=== PATIENT | female | born 1975 | race Two or more races ===

== ENCOUNTER → 2021-01-16 10:08 | Outpatient (REF) | payer OTHER, SELFPAY ==
--- NOTE | 2021-01-16 11:48 | CA_ITS ---
Acquisition Time: 2021-01-16 11:22:41 Total Exercise Time: 00:07:46 Test Indications: CP Medications: SEE CHART Protocol: LAURA Max HR: 136 BPM 77% of Pred: 176 BPM Max BP: 116/080 mmHG Max Work Load: 9.7 METS Exercise stress test using Laura protocol. Pt exercised for 7 min 46 sec, with METS 9.70 and TAPHR up to 76 %. No arrhytmias seen on EKG tracing, no ST changes suggestive of ischemia, however her HR up to 77 % and test had to terminated d/t fatique. Normotensive response to exercise. Test revieweed with Dr. Lanza. spoke with Dr. Andrew recommendation made for pharmacological stress test Referred By: Dayana Morris Overread By: Demetra Milner
== END ==
LOC: HO.CARD 10:08
PROVIDERS: PCP Internal Medicine; Visit Provider Internal Medicine
DX: R07.9 Chest pain, unspecified (principal)
CPT/HCPCS: 93017

== ENCOUNTER → 2021-02-22 10:07 | Outpatient (BNVA) | payer OTHER, SELFPAY | PROVIDERS: PCP Internal Medicine; Visit Provider Internal Medicine Cardiovascular Disease | DX: J44.9 Chronic obstructive pulmonary disease, unspecified (principal); R06.00 Dyspnea, unspecified; R07.9 Chest pain, unspecified | CPT/HCPCS: 93005; 99202 ==

== ENCOUNTER 2021-03-12 13:28 | Outpatient (REF) | payer OTHER, SELFPAY | END 2021-03-12 13:29 | disposition home or self-care (01) | LOC: HO.LAB 13:28 | PROVIDERS: Visit Provider Internal Medicine | DX: Z20.822 Contact with and (suspected) exposure to COVID-19 (principal) | CPT/HCPCS: C9803; U0003; U0005 ==

== ENCOUNTER 2021-03-29 09:54 | Outpatient (REF) | payer OTHER, SELFPAY ==
--- NOTE | 2021-03-29 10:30 | ECG_ITS ---
Test Reason : CP Blood Pressure : / mmHG Vent. Rate : 071 BPM Atrial Rate : 071 BPM P-R Int : 142 ms QRS Dur : 078 ms QT Int : 396 ms P-R-T Axes : 076 034 038 degrees QTc Int : 430 ms Normal sinus rhythm Possible Left atrial enlargement Borderline ECG No previous ECGs available Referred By: Dayana Morris Electronically Signed By:HERNANDEZ SANTOS MD
[2021-03-29 12:39] LABS: Alanine Aminotransferase 11 U/L (0-31); Albumin Level 3.9 g/dL (3.5-5.0); Alkaline Phosphatase 84 U/L (39-117); Anion Gap 12 (12-20); Aspartate Amino Transferase 12 U/L (5-31); Bilirubin Total 0.2 mg/dL (0.0-1.0); Blood Urea Nitrogen 12 mg/dL (9-16); Calcium 8.9 mg/dL (8.4-10.2); Carbon Dioxide 26 mmol/L (22-29); Chloride 106 mmol/L (96-108); Cholesterol 164 mg/dL; Estimated Glomerular Filt Rate > 60; Glucose Fasting 108 mg/dL (60-99); HDL Cholesterol 53 mg/dL; LDL Cholesterol Calculated 86 mg/dl; Potassium 4.6 mmol/L (3.3-5.1); Sodium 139 mmol/L (135-145); Total Protein 6.8 g/dL (6.5-8.0); Triglycerides 127 mg/dL
== END 2021-03-29 09:55 | disposition home or self-care (01) ==
LOC: HO.LAB 09:54
PROVIDERS: Absent Provider Internal Medicine; PCP Internal Medicine; Visit Provider Internal Medicine Pulmonary Disease
DX: J44.9 Chronic obstructive pulmonary disease, unspecified (principal); R07.9 Chest pain, unspecified; E78.5 Hyperlipidemia, unspecified; E66.3 Overweight; Z86.16 Personal history of COVID-19; Z20.822 Contact with and (suspected) exposure to COVID-19
CPT/HCPCS: 80053; 80061; 93005; 99202; U0003; U0005

== ENCOUNTER 2021-05-15 14:10 | Outpatient (REF) | payer OTHER, SELFPAY ==
--- NOTE | 2021-05-15 17:29 | PFT_ITS ---
INDICATION: Dyspnea. SPIROMETRY: The FEV1 to FVC is 77% with an FEV1 of 2.06 L, which is 85% predicted with an FVC of 2.66 L, which is 89% predicted. No significant response to bronchodilators noted. Maximum voluntary ventilation 74% predicted. LUNG VOLUMES: Total lung capacity 100% predicted with expiratory reserve volume of 136% predicted and residual volume of 115% predicted. DIFFUSION CAPACITY: DLCO 74% predicted. COMPARISONS: None. INTERPRETATION: No obstructive nor restrictive ventilatory defects identified. No significant response to bronchodilators noted. There is a mild decrease in maximum voluntary ventilation. Lung volumes within normal limits. There is an isolated mild diffusion impairment of unclear etiology. Clinical correlation warranted. Elliot Amanda MD MR/MODL / [id number]
== END 2021-05-15 14:11 | disposition home or self-care (01) ==
LOC: HO.RESP 14:10
PROVIDERS: PCP Internal Medicine; Visit Provider Internal Medicine Pulmonary Disease
DX: R06.00 Dyspnea, unspecified (principal)
CPT/HCPCS: 94060; 94727; 94729

== ENCOUNTER 2021-05-31 13:45 | Outpatient (REF) | payer OTHER, SELFPAY ==
[2021-05-31 14:12] LABS: MANUAL DIFF FLAG NO
[2021-05-31 14:28] LABS: Basophils Absolute Auto 0.1 X10*3/uL (0.0-0.2); Basophils Percent Auto 0.3 % (0-2); Eosinophils Absolute Auto 0.2 X10*3/uL (0.0-0.4); Eosinophils Percent Auto 0.9 % (0-4); Hematocrit 37.6 % (37-47); Hemoglobin 12.4 g/dl (12.0-16.0); Imm Gran Abs Auto 0.07 X10*3/uL (0.00-0.03); Imm Gran Pct Auto 0.4 % (0.0-0.4); Lymphocytes Absolute Auto 2.7 X10*3/uL (1.2-4.9); Lymphocytes Percent Auto 15.3 % (20-40); Mean Corpuscular Hemoglobin 29.2 pg (27.0-33.0); Mean Corpuscular Volume 88.5 fL (80-98); Mean Platelet Volume 9.2 fL (9.4-12.3); Monocytes Percent Auto 5.9 % (2-11); Neutrophils Absolute Auto 13.4 X10*3/uL (2.0-8.3); Neutrophils Percent Auto 77.2 % (45-73); Platelet Count 413 X10*3/uL (160-400); Red Blood Count 4.25 X10*6/uL (4.20-5.50); Red Cell Distribution Width 13.9 % (11.0-16.0); White Blood Count 17.3 X10*3/uL (4.8-10.8)
== END 2021-05-31 13:46 | disposition home or self-care (01) ==
LOC: HO.LAB 13:45
PROVIDERS: PCP Internal Medicine; Visit Provider Internal Medicine
DX: D64.9 Anemia, unspecified (principal)
CPT/HCPCS: 36415; 85025

== ENCOUNTER 2022-02-22 12:09 | Outpatient (REF) | payer OTHER, SELFPAY ==
[2022-02-22 12:48] LABS: COVID-19 Test Negative (Negative)
== END 2022-02-22 12:10 | disposition home or self-care (01) ==
LOC: HO.LAB 12:09
PROVIDERS: Visit Provider Internal Medicine
DX: Z20.822 Contact with and (suspected) exposure to COVID-19 (principal)
CPT/HCPCS: 87635; C9803

== ENCOUNTER 2022-08-16 14:38 | Outpatient (REF) | payer OTHER, SELFPAY ==
[2022-08-16 16:35] LABS: MANUAL DIFF FLAG NO
[2022-08-16 16:40] LABS: Basophils Absolute Auto 0.1 X10*3/uL (0.0-0.2); Basophils Percent Auto 0.7 % (0-2); Eosinophils Absolute Auto 0.1 X10*3/uL (0.0-0.4); Eosinophils Percent Auto 0.7 % (0-4); Hematocrit 40.4 % (37.0-47.0); Hemoglobin 13.2 g/dl (12.0-16.0); Imm Gran Abs Auto 0.03 X10*3/uL (0.00-0.03); Imm Gran Pct Auto 0.3 % (0.0-0.4); Lymphocytes Absolute Auto 2.5 X10*3/uL (1.2-4.9); Lymphocytes Percent Auto 22.9 % (20-40); Mean Corpuscular HGB Conc 32.7 g/dl (31.0-35.0); Mean Corpuscular Hemoglobin 28.8 pg (27.0-33.0); Mean Corpuscular Volume 88.2 fL (80.0-98.0); Mean Platelet Volume 9.6 fL (9.4-12.3); Monocytes Absolute Auto 0.9 X10*3/uL (0.1-1.2); Neutrophils Absolute Auto 7.4 x10*3/uL (2.0-8.3); Neutrophils Percent Auto 67.4 % (45-73); Platelet Count 438 X10*3/uL (160-400); Red Blood Count 4.58 X10*6/uL (4.20-5.50); Red Cell Distribution Width 13.7 % (11.0-16.0); White Blood Count 10.9 X10*3/uL (4.8-10.8)
[2022-08-16 17:29] LABS: Anion Gap 16 (12-20); Carbon Dioxide 27 mmol/L (22-29); Chloride 103 mmol/L (96-108); Potassium 4.8 mmol/L (3.3-5.1); Sodium 141 mmol/L (135-145)
[2022-08-16 17:39] LABS: Troponin-I High Sensitivity < 3.5 ng/L (<3.5-17.0)
== END 2022-08-16 14:39 | disposition home or self-care (01) ==
LOC: HO.HMGCLDS 14:38
PROVIDERS: PCP Internal Medicine
DX: R07.9 Chest pain, unspecified (principal)
CPT/HCPCS: 36415; 80051; 84484; 85025

== ENCOUNTER 2022-11-08 13:43 | Outpatient (REF) | payer OTHER, SELFPAY ==
--- NOTE | ~2022-11-08 | XR_ITS ---
EXAMINATION: XR CHEST CLINICAL INFORMATION: Chronic obstructive pulmonary disease COMPARISON: None TECHNIQUE: 2 views of the chest were obtained. FINDINGS: No significant abnormality is noted involving the heart, lungs, mediastinum, bony thorax or soft tissues. XR/XR chest 2V IMPRESSION: Unremarkable chest examination.
== END 2022-11-08 13:44 | disposition home or self-care (01) ==
LOC: HO.XRAY 13:43
PROVIDERS: PCP Internal Medicine; Visit Provider Internal Medicine Pulmonary Disease
DX: J44.9 Chronic obstructive pulmonary disease, unspecified (principal); Z91.09 Other allergy status, other than to drugs and biological substances
CPT/HCPCS: 71046; 99212

== ENCOUNTER 2023-05-15 10:32 | Outpatient (REF) | payer OTHER, SELFPAY ==
[2023-05-20 22:13] LABS: HPV mRNA E6/E7 rflx Not Detected (Not Detected)
== END 2023-05-15 10:33 | disposition home or self-care (01) ==
LOC: HO.LNP 10:32
PROVIDERS: PCP Internal Medicine; Visit Provider Advanced Practice Midwife
DX: Z01.419 Encounter for gynecological examination (general) (routine) without abnormal findings (principal); R23.2 Flushing; R63.5 Abnormal weight gain; N64.4 Mastodynia
CPT/HCPCS: 87624; 88142

== ENCOUNTER 2023-06-11 14:23 | Outpatient (AMB) | payer OTHER, SELFPAY ==
--- NOTE | 2023-06-11 14:26 | MHC.OFFVIS ---
Intake Vital Signs 06/11/23 14:28 Height 5 ft 2 in Weight 158 lb 11.725 oz BMI 29.0 BP 110/72 Pulse 70 Pulse Oximetry (%) 99 Intake Visit Reasons: COPD Intake Note: pt is on advair instead of breo, possible insurance did not cover medication. she also get pain in her chest at night and she uses her inhaler and it relives some pain. Allergies morphine [MORPHINE] Allergy (Severe, Verified 06/11/23 14:27) anaphylaxis ondansetron [From ZOFRAN ( HYDROCHLORIDE)] Allergy (Severe, Verified 06/11/23 14:27) Hives acetaminophen [From FIORICET] Allergy (Intermediate, Verified 06/11/23 14:27) abdominal pain butalbital [From FIORICET] Allergy (Intermediate, Verified 06/11/23 14:27) Abdominal Pain caffeine [From FIORICET] Allergy (Intermediate, Verified 06/11/23 14:27) Abdominal Pain ibuprofen [From MOTRIN] Allergy (Intermediate, Verified 06/11/23 14:27) Abdominal Pain ketorolac [From TORADOL] Allergy (Intermediate, Verified 06/11/23 14:27) Abdominal Pain naproxen [NAPROXEN] Allergy (Intermediate, Verified 06/11/23 14:27) Abdominal Pain nicotine [From NICODERM CQ] Allergy (Intermediate, Verified 06/11/23 14:27) MIGRAINE, rash, headache tramadol Allergy (Intermediate, Verified 06/11/23 14:27) abdominal pain, chest pain sumatriptan [From Imitrex] Adverse Reaction (Severe, Verified 06/11/23 14:27) chest pain HPI COPD HPI Details 48-year-old lady, recent 40+ pack-year smoker, now followed for asthma/COPD overlap syndrome and environmental allergies.? Patient has been using her Advair as needed with suboptimal control of his symptoms and also intermittently using her albuterol MDI. Though she denies an acute exacerbation. [facility] Medical History Blurry vision Chest pain Depression GERD (gastroesophageal reflux disease) Hot flashes Muscle spasm Nausea Overweight Surgical History History of appendectomy History of section History of cholecystectomy History of hemorrhoidectomy History of tubal ligation Family History Father Diabetes Mother Depression Hypertension Maternal Aunt Uterine cancer Social History Housing: Apartment Alcohol intake: former Patient Tobacco Use Status: Current everyday Tobacco user Tobacco use type: Cigarette Cigarettes Per Day: 10 e-Cigarette/Vaping Use: Never Used Second Hand Smoke Exposure: No service: No Current occupational status: unemployed Cognitive needs: No Hearing needs: No Vision needs: No Female Reproductive History Menstrual Age of Menarche: 15 Review of Systems Const Denies daytime sleepiness, Denies excessive sweating, Denies fatigue, Denies fever(s), Denies lethargy, Denies malaise, Denies night sweats, Denies snoring and Denies weight loss Eyes Denies blurry vision and Denies itchy eyes ENT Denies nasal congestion, Denies post nasal drip, Denies sinus pain, Denies sinus pressure and Denies other ( Thrush) Card Denies chest pain, Denies pedal edema, Denies dyspnea, Denies orthopnea and Denies paroxysmal nocturnal dyspnea Resp Denies cough, Denies hemoptysis, Denies excessive phlegm production, Denies dyspnea, Denies snoring and Denies wheezing GI Denies abdominal pain and Denies heartburn Musc Denies myalgias, Denies arthralgias and Denies joint swelling Skin/Breast Denies rash Neuro Denies memory loss and Denies seizure-like activity Psych Denies abnormal sleep pattern, Denies anxiety and Denies memory loss Endo Denies excessive sweating, Denies fatigue and Denies heat intolerance Hiram/Lymph Denies easy bruising Aller/Immun Denies itchy eyes, Denies seasonal rhinorrhea and Denies wheezing Physical Exam Vital Signs: Last Vital Signs Pulse 70 06/11/23 14:28 BP 110/72 06/11/23 14:28 Pulse Ox 99 06/11/23 14:28 BMI result Body Mass Index 29.0 Const General: no acute distress and alert Nutritional Appearance: not obese Orientation/consciousness: Other orientation findings ( oriented) HEENT Head: Yes atraumatic Eyes General: appearance normal, both eyes and all related structures Sclerae: sclerae normal EOM: EOMs intact bilaterally Neck Neck: Yes supple Lymphatic: no lymphadenopathy noted Resp Effort & Inspection: normal respiratory effort and no use of accessory muscles Auscultation: clear to auscultation bilaterally Cardio Rate: regular rate Rhythm: regular rhythm Heart sounds: no gallops, no murmurs and no rubs Skin General skin exam: other ( warm) Extrem General: No clubbing, No cyanosis and No edema Assessment & Plan Assessment & Plan (1) Asthma-COPD overlap syndrome: Code(s): J44.9 - Chronic obstructive pulmonary disease, unspecified Plan: Suboptimally controlled as patient has been using her Advair on as needed basis. Patient has been advised to use her Advair scheduled twice a day. Will continue albuterol MDI and duo nebs. (2) Environmental allergies: Code(s): Z91.09 - Other allergy status, other than to drugs and biological substances Plan: Will control at this time on OTC H2 blockers. (3) Declined smoking cessation: Code(s): Z72.0 - Tobacco use Plan: Patient is interested in smoking cessation and is requesting Chantix. Will prescribe. Medications: New varenicline (Chantix Starting Month Box) PO PER PKG DIR 53 ea 0RF Quality Reporting (2019) Adult ([facility] 138/01/22/69) Smoking risk assessment performed?: Yes Patient Tobacco Use Status: Current everyday Tobacco user Coding Level of Care Code Est Pt Level 4 (66882) Diagnoses Asthma-COPD overlap syndrome J44.9 Environmental allergies Z91.09 Declined smoking cessation Z72.0
[2023-06-11 14:28] VITALS: BP 110/72; PULSE 70; O2SAT 99; BMI 29.0
== END 2023-06-11 14:45 | disposition home or self-care (01) ==
PROVIDERS: PCP Internal Medicine; Visit Provider Internal Medicine Pulmonary Disease
DX: J44.9 Chronic obstructive pulmonary disease, unspecified (principal); Z91.09 Other allergy status, other than to drugs and biological substances; Z72.0 Tobacco use
CPT/HCPCS: 99214

== ENCOUNTER → 2023-06-11 14:23 | Outpatient (BNVA) | payer OTHER, SELFPAY | PROVIDERS: PCP Internal Medicine; Visit Provider Internal Medicine Pulmonary Disease | DX: J44.9 Chronic obstructive pulmonary disease, unspecified (principal); Z91.09 Other allergy status, other than to drugs and biological substances; Z72.0 Tobacco use | CPT/HCPCS: 99212 ==

== ENCOUNTER 2023-06-27 11:54 | Emergency (ER) | payer OTHER, SELFPAY ==
--- NOTE | ~2023-06-27 | XR_ITS ---
EXAMINATION: XR FOOT, RIGHT CLINICAL INFORMATION: Right foot injury with tenderness. COMPARISON: None available. TECHNIQUE: AP, lateral, and oblique views of the right foot. FINDINGS: The bones and soft tissues are normal. No fracture. Alignment is anatomic. Joint spaces are maintained. XR/XR foot RT 2V IMPRESSION: Unremarkable right foot.
--- NOTE | ~2023-06-27 | XR_ITS ---
EXAMINATION: XR ANKLE, RIGHT CLINICAL INFORMATION: Right ankle tenderness status post injury. COMPARISON: None available. TECHNIQUE: AP, lateral, and mortise views of the right ankle. FINDINGS: No fracture. Alignment is anatomic. No erosions. Joint spaces are maintained. Soft tissues are normal. XR/XR ankle RT 2V IMPRESSION: Unremarkable right ankle.
--- NOTE | 2023-06-27 11:55 | ED_ITS ---
HPI - General Adult General Chief complaint: Extremity Problem Stated complaint: Swollen Feet Time Seen by Provider: 06/27/23 12:02 Source: patient Mode of arrival: ambulatory Limitations: no limitations History of Present Illness HPI narrative: Patient is a 48 year old assigned female at with a history of COPD and GERD presenting to the emergency department today with right foot pain. Patient states that a couple days ago she hit her right foot and is now having redness and pain. Patient denies any dizziness, lightheadedness, abdominal pain, nausea, vomiting, fever, chills, blurry vision, double vision, loss of vision, chest pain, difficulty breathing, shortness of breath, back pain, night sweats, pain with urination, increased urinary frequency, increased urinary urgency, blood in her urine or stool, syncope or a near syncopal episode, bowel incontinence, bladder incontinence, bowel retention, bladder retention, or any other complaints at this time. Onset (ago): day(s) Location: right and lower extremity Radiation: non-radiation Severity: mild Severity scale (1-10): 4 Quality: aching and dull Pain Consistency: constant Relieving factors: none Exacerbating factors: none Associated symptoms: denies other symptoms Treatments prior to arrival: none Related Data Home Medications Medication Instructions Recorded Confirmed clonidine HCl 0.2 mg tablet 0.2 mg PO TID 01/02/21 01/09/23 mirtazapine 45 mg tablet 45 mg PO BEDTIME 01/02/21 01/09/23 prazosin 1 mg capsule 1 mg PO BEDTIME 01/02/21 01/09/23 quetiapine 25 mg tablet 25 mg PO BEDTIME 01/02/21 01/09/23 Previous Rx's Medication Instructions Recorded Ventolin HFA 90 mcg/actuation 2 puff inhalation Q4-6H PRN 10/09/22 aerosol inhaler (albuterol sulfate) shortness of breath or wheezing 30 days #1 ea cyclobenzaprine 10 mg tablet 10 mg PO Q8H PRN muscle spasm 90 11/08/22 days #270 tabs fluticasone propionate 230 2 puff inhalation Q12H 30 days #1 11/08/22 mcg-salmeterol 21 mcg/actuation ea HFA inhaler (Advair HFA) ipratropium 0.5 mg-albuterol 3 mg 3 ml inhalation Q4-6H PRN wheezing 11/08/22 (2.5 mg base)/3 mL nebulization 30 days #180 mL soln promethazine 25 mg tablet 25 mg PO BID PRN for 03/24/23 nausea/vomiting #60 tabs pantoprazole 40 mg tablet,delayed 40 mg PO DAILY 90 days #90 tabs 04/25/23 release varenicline 0.5 mg (11)-1 mg (42) See Rx Instructions PO PER PKG DIR 06/11/23 tablets in a dose pack (Gritness #53 ea Starting Month Box) cephalexin 500 mg capsule 500 mg PO Q6H 7 days #28 caps 06/27/23 fluconazole 150 mg tablet 150 mg PO Q3D 2 doses #2 tabs 06/27/23 (Diflucan) Allergies Allergy/AdvReac Type Severity Reaction Status Date / Time morphine [MORPHINE] Allergy Severe anaphylaxi Verified 06/11/23 14:27 s ondansetron Allergy Severe Hives Verified 06/11/23 14:27 [From ZOFRAN ( HYDROCHLORIDE)] acetaminophen [From FIORICET] Allergy Intermediate abdominal Verified 06/11/23 14:27 pain butalbital [From FIORICET] Allergy Intermediate Abdominal Verified 06/11/23 14:27 Pain caffeine [From FIORICET] Allergy Intermediate Abdominal Verified 06/11/23 14:27 Pain ibuprofen [From MOTRIN] Allergy Intermediate Abdominal Verified 06/11/23 14:27 Pain ketorolac [From TORADOL] Allergy Intermediate Abdominal Verified 06/11/23 14:27 Pain naproxen [NAPROXEN] Allergy Intermediate Abdominal Verified 06/11/23 14:27 Pain nicotine [From NICODERM CQ] Allergy Intermediate MIGRAINE, Verified 06/11/23 14: 27 rash, headache tramadol Allergy Intermediate abdominal Verified 06/11/23 14:27 pain, chest pain sumatriptan [From Imitrex] AdvReac Severe chest pain Verified 06/11/23 14:27 Review of Systems Constitutional: Constitutional: Reports no additional constitutional complaints, Denies chills, Denies fever(s) and Denies night sweats Eyes: Eyes: Reports no additional eye complaints, Denies blurry vision, Denies change in vision, Denies diplopia, Denies eye discharge, Denies loss of vision and Denies eye pain ENT: Denies dizziness Cardiovascular: Cardiovascular: Reports no additional cardiovascular complaints, Denies chest pain, Denies lightheadedness, Denies Loss of Consciousness and Denies dyspnea Respiratory: Respiratory: Reports no additional respiratory complaints and Denies dyspnea Gastrointestinal: Gastrointestinal: Reports no additional gastrointestinal complaints, Denies abdominal pain, Denies melena, Denies hematochezia, Denies change in bowel habits and Denies change in stool character Genitourinary: Genitourinary: Denies hematuria, Denies urinary frequency, Denies dysuria, Denies urinary incontinence, Denies urinary hesitancy and Denies urinary urgency Musculoskeletal: Musculoskeletal: Reports no additional musculoskeletal complaints, Denies numbness and Denies tingling Comments: right foot pain Neurologic: Denies dizziness, Denies loss of vision, Denies numbness and Denies tingling Psychiatric: Psychiatric: Reports no additional psychiatric complaints Endocrine: Endocrine: Reports no additional endocrine complaints Hematologic/Lymphatic: Hematologic/Lymphatic: Reports no additional hematologic/lymphatic complaints Allergic/Immunologic: Allergic/Immunologic: Reports no additional allergic/im munologic complaints [facility] Past Medical History Attestation statement: The following information was validated with the patient. Source: old records reviewed and nursing notes reviewed Medical History Annual physical exam Blurry vision Chalazion of right eyelid Chest pain Declined smoking cessation Depression GERD (gastroesophageal reflux disease) Hot flashes Muscle spasm Nausea Overweight Surgical History History of appendectomy History of section History of cholecystectomy History of hemorrhoidectomy History of tubal ligation Family History Family History Father Diabetes Mother Depression Hypertension Maternal Aunt Uterine cancer Social History Social History Housing: Apartment Alcohol intake: former Patient Tobacco Use Status: Current everyday Tobacco user Tobacco use type: Cigarette Cigarettes Per Day: 10 e-Cigarette/Vaping Use: Never Used Second Hand Smoke Exposure: No Advance Directives: No Advance Directives Information Provided: No service: No Current occupational status: unemployed Cognitive needs: No Hearing needs: No Vision needs: No Physical Exam ED Vital Signs: Vital Signs - 24 hr 06/27/23 11:57 Temperature 98.4 F Pulse Rate 96 Respiratory Rate 20 Blood Pressure 124/59 L Pulse Oximetry 97 Oxygen Delivery Method Room Air BMI result Body Mass Index 28.7 Const General: cooperative, no acute distress, alert and awake Nutritional Appearance: well nourished Orientation/consciousness: patient oriented x3 Limitations: no limitations HENMT Head: Yes normal to inspection and Yes atraumatic Ears: hearing grossly normal bilaterally and external ears normal General nose exam: Normal external nose present, no nasal discharge noted and no epistaxis Face and sinus: Yes normal facial exam, No abrasion and No laceration Mouth: Normal oral and palatal mucosa present, no drooling and no muffled voice Eyes General: appearance normal, both eyes and all related structures Periorbital: periorbital findings normal Eyelids: Yes eyelids normal Conjunctivae: conjunctivae normal Pupils: Equal, round and reactive pupils present EOM: EOMs intact bilaterally Neck Neck: Yes normal visual inspection, Yes full ROM and Yes no lymphadenopathy Chest Chest palpation & inspection: normal inspection of the chest Resp Effort & Inspection: normal respiratory effort and able to speak in complete sentences GI Inspection: Yes normal to inspection Neuro General: patient oriented x3 and moves all extremities Cranial nerves: Yes Equal, round and reactive pupils present Cognition (Neuro): normal cognition Motor exam (neuro): 5/5 motor strength present throughout Sensory Exam: Normal double simultaneous stimulation for sensation Coordination: [id number] test normal Extrem Other: minimal redness and warmth to the dorsal aspect of the right foot General: Yes full ROM and Yes capillary refill normal Psych Appearance: grossly normal Mental Status: mental status grossly normal Affect: normal affect Attitude: cooperative Thought process: Normal thought process present Thought content: Normal thought content present Insight: Good insight present (Psych) Course Course Course Narrative: This is a rapid medical exam: Additional HPI, ROS, PE not included below will be deferred to primary provider. Patient is a 48-year-old [place]-speaking female presenting to the ED with history of [place]/COPD, GERD complaining of right foot pain, redness. States she initially rolled her ankle but now has peeling skin and erythema and pain to dorsal aspect of distal right foot. Denies history of diabetes. Plan; basic labs, right foot and ankle x-rays Medical Decision Making Medical Decision Making MDM Narrative: Patient is a 48 year old assigned female at with a history of GERD and COPD presenting to the emergency department today with right foot pain. Patient's physical exam was as noted in the physical exam portion of this chart. Additionally, patient had questionable yeast in between her right 5th and 4th toes. Patient's blood work showed a mildly elevated WBC count of 12.5 but the rest of her labs were grossly normal. Patient's right foot and right ankle x- rays showed no acute process. I explained my physical exam findings as well as all test results to the patient. I answered all questions asked by the patient. I stressed the importance of the patient taking her medication as prescribed. I stressed the importance of the patient following up with her primary care provider. I stressed the importance of the patient returning to the emergency department immediately if her symptoms were to worsen or if she were to develop any dizziness, shortness of breath, difficulty breathing, chest pain, blurry vision, loss of vision, nausea, vomiting, abdominal pain, fever, chills, back pain, or any other complaints. Patient verbalized agreement and understanding with this treatment plan and discharge. Differential Diagnosis Differential Diagnoses: The differential diagnosis associated with the presentation includes Cellulitis Yeast infection Right foot injury Admission/Observation Consideration of admission/observation: Escalation of care including admission/observation considered Patient would have been admitted to the hospital had her work up had any findings where hospital admission was appropriate and her clinical presentation warranted hospital admission. Lab Data [facility] Lab Attestation statement: I reviewed the patient's lab results. My interpretation of these studies and their corresponding values are in the [facility] portion of this chart. 06/27/23 12:03 06/27/23 12:02 Labs: Lab Results 06/27/23 06/27/23 Range/Units 12:02 12:03 WBC 12.5 H (4.8-10.8) X10*3/uL RBC 4.53 (4.20-5.50) X10*6/uL Hgb 13.1 (12.0-16.0) g/dl Hct 38.8 (37.0-47.0) % MCV 85.7 (80.0-98.0) fL MCH 28.9 (27.0-33.0) pg MCHC 33.8 (31.0-35.0) g/dl RDW 13.8 (11.0-16.0) % Plt Count 430 H (160-400) X10*3/uL MPV 8.9 L (9.4-12.3) fL Immature Gran % (Auto) 0.5 H (0.0-0.4) % Neut % (Auto) 71.0 (45-73) % Lymph % (Auto) 19.3 L (20-40) % [place] % (Auto) 6.8 (2-11) % Eos % (Auto) 1.9 (0-4) % Baso % (Auto) 0.5 (0-2) % Lymph # (Auto) 2.4 (1.2-4.9) X10*3/uL [place] # (Auto) 0.9 (0.1-1.2) X10*3/uL Eos # (Auto) 0.2 (0.0-0.4) X10*3/uL Baso # (Auto) 0.1 (0.0-0.2) X10*3/uL Abs Immat Gran (auto) 0.06 H (0.00-0.03) X10*3/uL Absolute Neuts (auto) 8.8 H (2.0-8.3) x10*3/uL Absolute Nucleated RBC 0.000 (0.0-0.012) X10*3/uL Nucleated RBC % (auto) 0.0 (0.0-0.2) /100WBC Sodium 138 (135-145) mmol/L Potassium 3.9 (3.3-5.1) mmol/L Chloride 107 (96-108) mmol/L Carbon Dioxide 21 L (22-29) mmol/L Anion Gap 14 (12-20) BUN 9 (9-16) mg/dL Creatinine 0.69 (0.5-1.4) mg/dL Estim Creat Clear Calc 82.2 Estimated GFR > 60 Random Glucose 113 (60-115) mg/dL Calcium 9.0 (8.4-10.2) mg/dL Independent Interpretation I performed an independent interpretation of an: Plain X-Ray Interpretation: My interpretation is in agreement with the radiologist's impression of these imaging studies. ------ EXAMINATION: XR FOOT, RIGHT CLINICAL INFORMATION: Right foot injury with tenderness.? COMPARISON: None available.? TECHNIQUE: AP, lateral, and oblique views of the right foot. FINDINGS: The bones and soft tissues are normal. No fracture. Alignment is anatomic. Joint spaces are maintained.? XR/XR foot RT 2V IMPRESSION: Unremarkable right foot. Dictated By: Adarsh Mcconnell MD Signed By: Electronically signed by Adarsh Mcconnell MD 06/27/23 1228 EXAMINATION: XR ANKLE, RIGHT CLINICAL INFORMATION: Right ankle tenderness status post injury.? COMPARISON: None available.? TECHNIQUE: AP, lateral, and mortise views of the right ankle. FINDINGS: No fracture. Alignment is anatomic. No erosions. Joint spaces are maintained. Soft tissues are normal.? XR/XR ankle RT 2V IMPRESSION: Unremarkable right ankle. Dictated By: Adarsh Mcconnell MD Signed By: Electronically signed by Adarsh Mcconnell MD 06/27/23 1228 Radiology Impression Discussion of test interpretation with radiology: I have reviewed the radiologist's reading. Prescription Management I considered prescription management with: Antibiotic (patient prescribed an antibiotic) Discharge Plan Discharge Clinical Impression: Cellulitis Patient Disposition: Home, Self-Care Instructions: Cellulitis (DC) Additional Instructions: Follow up with your primary care provider. Return to the emergency department immediately if your symptoms worsen or if you develop any dizziness, shortness of breath, difficulty breathing, chest pain, blurry vision, loss of vision, nausea, vomiting, abdominal pain, fever, chills, back pain, or any other complaints. Fawn un seguimiento con mcmillan proveedor de atenci?n primaria. Regrese al departamento de emergencias de inmediato si tosha s?ntomas empeoran o si presenta mareos, falta de aire, dificultad para respirar, dolor de pecho, visi?n borrosa, p?rdida de la visi?n, n?useas, v?mitos, dolor abdominal, fiebre, escalofr?os, do celina de espalda o cualquier otras quejas. Prescriptions: New fluconazole [Diflucan] 150 mg tablet 150 mg PO Q3D Qty: 2 0RF cephalexin 500 mg capsule 500 mg PO Q6H 7 Days Qty: 28 0RF No Action albuterol sulfate [Ventolin HFA] 90 mcg/actuation HFA aerosol inhaler 2 puff inhalation Q4-6H PRN (Reason: shortness of breath or wheezing) 30 Days Qty: 1 6RF cyclobenzaprine 10 mg tablet 10 mg PO Q8H PRN (Reason: muscle spasm) 90 Days Qty: 270 3RF Advair HFA 230-21 mcg/actuation HFA aerosol inhaler 2 puff inhalation Q12H 30 Days Qty: 1 6RF promethazine 25 mg tablet 25 mg PO BID PRN (Reason: for nausea/vomiting) Qty: 60 3RF pantoprazole 40 mg tablet,delayed release (DR/EC) 40 mg PO DAILY 90 Days Qty: 90 2RF quetiapine 25 mg tablet 25 mg PO BEDTIME clonidine HCl 0.2 mg tablet 0.2 mg PO TID prazosin 1 mg capsule 1 mg PO BEDTIME mirtazapine 45 mg tablet 45 mg PO BEDTIME ipratropium-albuterol 0.5 mg-3 mg(2.5 mg base)/3 mL solution for nebulization 3 ml inhalation Q4-6H PRN (Reason: wheezing) 30 Days Qty: 180 6RF varenicline [Chantix Starting Month Box] 0.5 mg (11)- 1 mg (42) tablets,dose pack See Rx Instructions PO PER PKG DIR Qty: 53 0RF Rx Instructions: PO PER PKG DIR Referrals: Dayana Soria MD [Primary Care Provider] - Interventions: ED Discharge Assessment Last Done: 06/27/23 12:43 Discharge Date/Time: 06/27/23 12:43 Print Language: [place]
[2023-06-27 11:57] VITALS: BP 124/59; PULSE 96; RESP 20; TEMP 36.9; O2SAT 97; BMI 28.7
[2023-06-27 12:07] LABS: MANUAL DIFF FLAG NO
[2023-06-27 12:09] LABS: Basophils Absolute Auto 0.1 X10*3/uL (0.0-0.2); Basophils Percent Auto 0.5 % (0-2); Eosinophils Absolute Auto 0.2 X10*3/uL (0.0-0.4); Eosinophils Percent Auto 1.9 % (0-4); Hematocrit 38.8 % (37.0-47.0); Hemoglobin 13.1 g/dl (12.0-16.0); Imm Gran Abs Auto 0.06 X10*3/uL (0.00-0.03); Imm Gran Pct Auto 0.5 % (0.0-0.4); Lymphocytes Absolute Auto 2.4 X10*3/uL (1.2-4.9); Lymphocytes Percent Auto 19.3 % (20-40); Mean Corpuscular HGB Conc 33.8 g/dl (31.0-35.0); Mean Corpuscular Hemoglobin 28.9 pg (27.0-33.0); Mean Corpuscular Volume 85.7 fL (80.0-98.0); Mean Platelet Volume 8.9 fL (9.4-12.3); Monocytes Absolute Auto 0.9 X10*3/uL (0.1-1.2); Monocytes Percent Auto 6.8 % (2-11); Neutrophils Absolute Auto 8.8 x10*3/uL (2.0-8.3); Platelet Count 430 X10*3/uL (160-400); Red Blood Count 4.53 X10*6/uL (4.20-5.50); Red Cell Distribution Width 13.8 % (11.0-16.0); White Blood Count 12.5 X10*3/uL (4.8-10.8)
[2023-06-27 12:20] LABS: Anion Gap 14 (12-20); Blood Urea Nitrogen 9 mg/dL (9-16); Carbon Dioxide 21 mmol/L (22-29); Chloride 107 mmol/L (96-108); Creatinine Clr Calc Pharmacy 82.2; Estimated Glomerular Filt Rate > 60; Glucose Random 113 mg/dL (60-115); Potassium 3.9 mmol/L (3.3-5.1); Sodium 138 mmol/L (135-145)
== END 2023-06-27 12:43 | disposition home or self-care (01) ==
PROVIDERS: Registered Nurse Emergency; Emergency Provider Emergency Medicine Emergency Medical Services; PCP Internal Medicine
DX: L03.115 Cellulitis of right lower limb (principal); R60.0 Localized edema; M79.671 Pain in right foot; F17.210 Nicotine dependence, cigarettes, uncomplicated; Z71.6 Tobacco abuse counseling; Z79.899 Other long term (current) drug therapy
CPT/HCPCS: 36415; 73600; 73620; 80048; 85025; 99282; 99283

== ENCOUNTER 2023-07-01 09:43 | Outpatient (AMB) | payer OTHER, SELFPAY ==
[2023-07-01 09:47] VITALS: BP 100/66; PULSE 85; O2SAT 99; BMI 31.1
--- NOTE | 2023-07-01 09:47 | MHC.PC.OV ---
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 to curatorial assistant [employer] Required: No Allergies morphine [MORPHINE] Allergy (Severe, Verified 07/01/23 09:56) anaphylaxis ondansetron [From ZOFRAN ( HYDROCHLORIDE)] Allergy (Severe, Verified 07/01/23 09:56) Hives acetaminophen [From FIORICET] Allergy (Intermediate, Verified 07/01/23 09:56) abdominal pain butalbital [From FIORICET] Allergy (Intermediate, Verified 07/01/23 09:56) Abdominal Pain caffeine [From FIORICET] Allergy (Intermediate, Verified 07/01/23 09:56) Abdominal Pain ibuprofen [From MOTRIN] Allergy (Intermediate, Verified 07/01/23 09:56) Abdominal Pain ketorolac [From TORADOL] Allergy (Intermediate, Verified 07/01/23 09:56) Abdominal Pain naproxen [NAPROXEN] Allergy (Intermediate, Verified 07/01/23 09:56) Abdominal Pain nicotine [From NICODERM CQ] Allergy (Intermediate, Verified 07/01/23 09:56) MIGRAINE, rash, headache tramadol Allergy (Intermediate, Verified 07/01/23 09:56) abdominal pain, chest pain sumatriptan [From Imitrex] Adverse Reaction (Severe, Verified 07/01/23 09:56) chest pain Medication List - Last Reconciled 07/01/23 by RHYS Portillo cephalexin 500 mg PO Q6H 7 days clonidine HCl 0.2 mg PO TID cyclobenzaprine 10 mg PO Q8H PRN 90 days fluconazole (Diflucan) 150 mg PO Q3D 2 doses fluticasone propion-salmeterol 230-21 mcg/actuation (Advair HFA) 2 puffs inhalation Q12H 30 days ipratropium-albuterol 0.5 mg-3 mg(2.5 mg base)/3 mL 3 mL inhalation Q4-6H PRN 30 days mirtazapine 45 mg PO BEDTIME pantoprazole 40 mg PO DAILY 90 days prazosin 1 mg PO BEDTIME promethazine 25 mg PO BID PRN quetiapine 25 mg PO BEDTIME varenicline (Chantix Starting Month ) PO PER PKG DIR Ventolin HFA 90 mcg/actuation (albuterol sulfate) 2 puffs inhalation Q4-6H PRN 30 days NS Tobacco use date assessed: 07/01/23 Dental Screening Dental Screen Date: 07/01/23 HPI Chest pain that comes and goes HPI Details Patient is a 48-year-old female presents today with intermittent chest pains for over 6 [address] of [address] Gar. Medical history significant for GERD, depression, asthma-COPD overlap syndrome-followed by pulmonology. Patient was seen by Cardiology Dr. Cespedes 01/2021 and thought to have Chest pain is quite atypical and reproducible on the chest wall is likely musculoskeletal in origin.? She had stress testing done where she was able to exercise without any symptoms. Today, patient reports intermittent left-sided mid chest pain which is usually at night when she is resting, denies chest pain on exertion. No chest pain or shortness of breath in the office today. She describes chest pain as pressure/squeezing sensation. She also reports anxiety which is relieved with clonidine p.r.n., although she reports that she still have this chest pain after taking clonidine for anxiety. Patient smokes 10 cigarettes per day, reports she will be starting Chantix. Reports that asthma/COPD overlap syndrome is stable with current treatment. Patient is a Irish-speaking and Karolina was helping with interpretation. Patient requesting cardiology referral. GERD stable with pantoprazole daily. [facility] Medical History Annual physical exam Blurry vision Chalazion of right eyelid Chest pain Declined smoking cessation Depression GERD (gastroesophageal reflux disease) Hot flashes Muscle spasm Nausea Overweight Surgical History History of appendectomy History of section History of cholecystectomy History of hemorrhoidectomy History of tubal ligation Family History Father Diabetes Mother Depression Hypertension Maternal Aunt Uterine cancer Social History Housing: Apartment Alcohol intake: former Patient Tobacco Use Status: Current everyday Tobacco user Tobacco use type: Cigarette Cigarettes Per Day: 10 e-Cigarette/Vaping Use: Never Used Second Hand Smoke Exposure: No service: No Current occupational status: unemployed Cognitive needs: No Hearing needs: No Vision needs: No Female Reproductive History Menstrual Age of Menarche: 15 Questionnaire Thrive Questionnaire Date Thrive assessed: 01/09/23 AUDIT C Alcohol Use Questionnaire (AUDIT-C) 1. How often do you have a drink containing alcohol?: Never 2. How many drinks containing alcohol do you have on a typical day when you are drinking?: 1 or 2 (0) 3. How often do you have six or more drinks on one occasion?: Never Total Score: 0 Score Reviewed/Action Taken: No RAINER-7 AMB Questionnaire RAINER-7 Date RAINER - 7 assessed: 01/09/23 Source: Developed by Drs. Wilfred Pineda, Sophy Van, Honorio Lennon and colleagues, with an educational fidencio from [employer]. Review of Systems Const Denies body aches, Denies chills, Denies fever(s) and Denies headache(s) Eyes Denies change in vision ENT Denies dizziness, Denies otalgia, Denies headache(s), Denies nasal discharge, Denies sinus pain and Denies sore throat Card Denies chest pain, Reports chest pain at rest (at night ), Denies chest pain with activity, Denies edema, Denies lightheadedness and Denies dyspnea Resp Denies cough, Denies dyspnea and Denies wheezing GI Denies constipation, Denies diarrhea, Denies nausea and Denies vomiting Denies dysuria Musc Denies myalgias Skin/Breast Denies rash Neuro Denies dizziness and Denies headache(s) Aller/Immun Denies wheezing Physical exam (Primary Care) Vital Signs: Last Vital Signs Pulse 85 07/01/23 09:47 BP 100/66 07/01/23 09:47 Pulse Ox 99 07/01/23 09:47 Oxygen Delivery Method Room Air 07/01/23 09:47 BMI result Body Mass Index 31.1 Tobacco/Smoking Status: Tobacco use Status Tobacco use date assessed 07/01/23 07/01/23 09:47 Patient Tobacco Use Status Current everyday Tobacco 07/01/23 09:47 Tobacco use type Cigarette 07/01/23 09:47 e-Cigarette/Vaping Use Never Used 07/01/23 09:47 Thrive Assessment: Date of Thrive Assessment Date Thrive assessed 01/09/23 07/01/23 09:47 Const General: cooperative and no acute distress Orientation/consciousness: patient oriented x3 HENMT Head: Yes normocephalic and Yes atraumatic Ears: TM's normal bilaterally Face and sinus: Yes sinuses nontender Mouth: oropharynx normal and moist mucous membranes Throat: Yes posterior oropharynx normal Eyes General: appearance normal, both eyes and all related structures Neck Neck: Yes normal visual inspection, Yes full ROM and Yes no lymphadenopathy Chest Chest palpation & inspection: no tenderness Resp Effort & Inspection: normal respiratory effort and able to speak in complete sentences Auscultation: clear to auscultation bilaterally, no crackles, no rales, no rhonchi and no wheezes Cardio Rate: regular rate Rhythm: regular rhythm Heart sounds: S1 normal heart sound present, S2 normal heart sound present and no murmurs GI Auscultation: normal bowel sounds Skin General skin exam: no rashes or lesions noted Neuro General: patient oriented x3 Gait exam (Neuro): Normal gait present Extrem General: Yes full ROM and No edema Assessment and Plan Assessment & Plan (1) Intermittent left-sided chest pain: Code(s): R07.89 - Other chest pain Plan: Patient denies shortness of breath or chest pain in the office today. Reports chest pain at rest at night intermittent for over 6 months now. Will obtain EKG. Cardiology referral for an evaluation and treatment. Signs and symptoms reviewed when to notify provider or go to the emergency department. Plan Patient reports that she was seen in the emergency department couple days ago for right foot cellulitis and she is currently on antibiotics with improvement in her symptoms. Follow-up in the office if no improvement after treatment. Orders: Orders ECG 12 lead EKG Today R07.89 - Other chest pain Referrals Cardiology Referral R07.89 - Other chest pain Coding Level of Care Code Est Pt Level 3 (15125) Diagnoses Intermittent left-sided chest pain R07.89
== END 2023-07-01 10:10 | disposition home or self-care (01) ==
PROVIDERS: PCP Internal Medicine; Visit Provider Nurse Practitioner Family
DX: R07.89 Other chest pain (principal)
CPT/HCPCS: 99213

== ENCOUNTER 2023-08-22 09:42 | Outpatient (AMB) | payer OTHER, SELFPAY ==
[2023-08-22 09:43] VITALS: BP 110/72; PULSE 88; BMI 28.5
--- NOTE | 2023-08-22 09:43 | A.OFFVIS_ITS ---
Intake Vital Signs 08/22/23 09:43 Height 4 ft 11 in Weight 141 lb 1.533 oz BMI 28.5 BP 110/72 Blood Pressure Location Lt brachial Position Sitting Pulse 88 Intake Visit Reasons: chest pain Intake Note: Follow-up with ekg c/o some chest pain Cager Operator Required: Yes Cager Operator Name: Carrie cordero Systems Software Specialist: Systems Software Specialist Present Accompanied by: Family/Other Allergies morphine [MORPHINE] Allergy (Severe, Verified 07/01/23 09:56) anaphylaxis ondansetron [From ZOFRAN ( HYDROCHLORIDE)] Allergy (Severe, Verified 07/01/23 09:56) Hives acetaminophen [From FIORICET] Allergy (Intermediate, Verified 07/01/23 09:56) abdominal pain butalbital [From FIORICET] Allergy (Intermediate, Verified 07/01/23 09:56) Abdominal Pain caffeine [From FIORICET] Allergy (Intermediate, Verified 07/01/23 09:56) Abdominal Pain ibuprofen [From MOTRIN] Allergy (Intermediate, Verified 07/01/23 09:56) Abdominal Pain ketorolac [From TORADOL] Allergy (Intermediate, Verified 07/01/23 09:56) Abdominal Pain naproxen [NAPROXEN] Allergy (Intermediate, Verified 07/01/23 09:56) Abdominal Pain nicotine [From NICODERM CQ] Allergy (Intermediate, Verified 07/01/23 09:56) MIGRAINE, rash, headache tramadol Allergy (Intermediate, Verified 07/01/23 09:56) abdominal pain, chest pain sumatriptan [From Imitrex] Adverse Reaction (Severe, Verified 07/01/23 09:56) chest pain Medication List - Last Reconciled 08/22/23 by ANGELINA WebbC clonidine HCl 0.2 mg PO TID cyclobenzaprine 10 mg PO Q8H PRN 90 days fluconazole (Diflucan) 150 mg PO Q3D 2 doses fluticasone propion-salmeterol 230-21 mcg/actuation (Advair HFA) 2 puffs inhalation Q12H 30 days ipratropium-albuterol 0.5 mg-3 mg(2.5 mg base)/3 mL 3 mL inhalation Q4-6H PRN 30 days mirtazapine 45 mg PO BEDTIME pantoprazole 40 mg PO DAILY 90 days prazosin 1 mg PO BEDTIME promethazine 25 mg PO BID PRN quetiapine 25 mg PO BEDTIME varenicline (Chantix Starting Month Box) PO PER PKG DIR Ventolin HFA 90 mcg/actuation (albuterol sulfate) 2 puffs inhalation Q4-6H PRN 30 days NS HPI chest pain HPI Details Xin is a 48-year-old female with past medical history asthma, atypical chest pain who presents for follow-up with symptoms of fatigue and chest pains. Today she reports that she has been experiencing much fatigue. She states she is busy doing house work but does not have a job outside of the house. She does not do any routine exercise. She has daytime sleepiness. She does admit to snoring during the night per her significant other. She gets some random chest discomfort, mostly at night when laying down. She gets discomfort in her shoulder and into left arm also mostly with laying down. She denies any exertional chest discomfort. She has some shortness of breath with activity which is not new. She is following with pulmonology. No palpitations, presyncope, syncope, falls. No PND, orthopnea or edema. Taking meds as directed. [facility] Medical History Declined smoking cessation Hot flashes Chalazion of right eyelid Annual physical exam Chest pain Depression Blurry vision Overweight Nausea Muscle spasm GERD (gastroesophageal reflux disease) Surgical History History of hemorrhoidectomy History of tubal ligation History of section History of appendectomy History of cholecystectomy Family History Father Diabetes Mother Depression Hypertension Maternal Aunt Uterine cancer Social History Housing: Apartment Alcohol intake: former Patient Tobacco Use Status: Current everyday Tobacco user Tobacco use type: Cigarette Cigarettes Per Day: 10 e-Cigarette/Vaping Use: Never Used Second Hand Smoke Exposure: No service: No Current occupational status: unemployed Cognitive needs: No Hearing needs: No Vision needs: No Female Reproductive History Menstrual Age of Menarche: 15 Review of Systems Const All systems reviewed & are unremarkable except as noted in HPI and below Denies chills, Reports fatigue, Denies fever(s), Denies frequent falls, Denies weakness, Denies weight gain and Denies weight loss ENT Denies dizziness Card Reports chest pain, Denies leg edema, Denies lightheadedness, Denies palpitation s, Denies dyspnea, Denies dyspnea on exertion, Denies orthopnea and Denies other (loss of consciousness) Resp Denies cough, Denies dyspnea and Denies dyspnea on exertion GI Denies hematochezia and Denies change in stool character Musc Denies abnormal gait, Denies muscle weakness, Denies numbness, Denies radiating pain into limb and Denies tingling Neuro Denies abnormal gait, Denies dizziness, Denies frequent falls, Denies numbness, Denies tingling and Denies weakness Endo Reports fatigue and Denies palpitations Physical Exam Vital Signs: Last Vital Signs Pulse 88 08/22/23 09:43 BP 110/72 08/22/23 09:43 BMI result Body Mass Index 28.5 Const General: cooperative, healthy appearing, comfortable and no acute distress Orientation/consciousness: patient oriented x3 Neck Neck: Yes normal visual inspection and Yes no JVD Resp Effort & Inspection: normal respiratory effort Auscultation: clear to auscultation bilaterally, no crackles, no rales, no rhonchi and no wheezes Cardio Jugular venous distension: no JVD Rate: regular rate Rhythm: regular rhythm Heart sounds: S1 normal heart sound present, S2 normal heart sound present, no gallops, no murmurs and no rubs Peripheral pulses: Peripheral pulses 2+ throughout Neuro General: patient oriented x3 Extrem General: Yes normal to inspection and No no pedal edema Psych Appearance: grossly normal Mental Status: mental status grossly normal Speech and movement: Normal speech and movement present Office Procedures EKG Details: Today, read by me, normal sinus rhythm, no acute ST or T-wave abnormalities, rate 88, QTC 462 milliseconds [id number], Complete Assessment & Plan Assessment & Plan (1) Chest pain: Code(s): R07.9 - Chest pain, unspecified Qualifiers: Chest pain type: unspecified Qualified Code(s): R07.9 - Chest pain, unspecified Plan: History of atypical chest discomfort, felt to be mostly musculoskeletal in nature. She did have an exercise stress test on 01/16/2021 showing exercise nearly 8 minutes achieving 76% MPHR, no EKG changes. She has no significant cardiac risk factors. At this time again she is reporting some atypical sounding chest discomfort, nonexertional. Reviewed last stress test results with her. Will check an echocardiogram to assess for any signs of structural heart disease. If there is a reduced EF or wall motion abnormality then a nuclear stress test will be done. Signs and symptoms of true angina reviewed with her. Emergency care if ever needed for symptoms. Cardiology follow-up in 2 months, sooner if needed. (2) Fatigue: Code(s): R53.83 - Other fatigue Qualifiers: Fatigue type: chronic, unspecified Qualified Code(s): R53.82 - Chronic fatigue, unspecified Plan: Patient reports much fatigue, limiting her desire to do physical activity. She has nighttime snoring and gasping. Has never had evaluation for sleep apnea. Will order home sleep study for further evaluation. She is agreeable to this plan. (3) WEI (dyspnea on exertion): Code(s): R06.00 - Dyspnea, unspecified Plan: Following with pulmonology. Obtaining echocardiogram as above (4) Hypersomnia: Code(s): G47.10 - Hypersomnia, unspecified Orders: Orders CA echo transthoracic complete Today R06.00 - Dyspnea, unspecified, R07.9 - Chest pain, unspecified, R53.83 - Other fatigue RT home sleep study Today G47.10 - Hypersomnia, unspecified, R06.00 - Dyspnea, unspecified, R53.83 - Other fatigue Quality Reporting (2019) Adult ([facility] 138/01/22/69) Smoking risk assessment performed?: Yes Patient Tobacco Use Status: Current everyday Tobacco user Coding Level of Care Code Est Pt Level 4 (83177) Diagnoses Chest pain, unspecified type R07.9 Chest pain type: unspecified Chronic fatigue R53.82 Fatigue type: chronic, unspecified WEI (dyspnea on exertion) R06.00 Hypersomnia G47.10 CPT Codes EKG - CPT: [id number], Complete ([id number]) Time Spent (min) 28
== END 2023-08-22 10:13 | disposition home or self-care (01) ==
PROVIDERS: PCP Internal Medicine; Visit Provider Nurse Practitioner Family
DX: R07.9 Chest pain, unspecified (principal); R53.82 Chronic fatigue, unspecified; R06.00 Dyspnea, unspecified; G47.10 Hypersomnia, unspecified
CPT/HCPCS: 93010; 99214

== ENCOUNTER → 2023-08-22 09:42 | Outpatient (BNVA) | payer OTHER, SELFPAY | PROVIDERS: PCP Internal Medicine; Visit Provider Nurse Practitioner Family | DX: R07.9 Chest pain, unspecified (principal); R53.82 Chronic fatigue, unspecified; R06.00 Dyspnea, unspecified; G47.10 Hypersomnia, unspecified | CPT/HCPCS: 93005; 99212 ==

== ENCOUNTER → 2023-09-24 13:23 | Outpatient (REF) | payer OTHER, SELFPAY ==
--- NOTE | 2023-09-24 13:28 | CA_ITS ---
Transthoracic Echocardiogram Patient (Last, First, Middle): Xin Alvarez, Gender: Female Date of : 1975 Age: 48 Procedure Date: 09/24/2023 Procedure Type: Transthoracic Echocardiogram Location: OP Height: 149.86 cm Weight: 66.23 kg BSA: 1.61 m2 Heart Rate: bpm BP: 110 / 72 mmHg Bottle Packing Machine Cleaner: TO Referring MD: Tyesha Cintron CARE CENTER MANAGERMichael Currency Exchange Specialist: Yomi Campbell MD Symptoms: R07.9 - Chest pain, unspecified Study Quality: Technically Difficult ECG Rhythm: Sinus Conclusions: - 1. Technically limited study despite use of contrast agent 2. Normal LV ejection fraction 55-60% with impaired relaxation filling pattern with grade 1 diastolic dysfunction 3. Limited visualization cardiac valve with normal cardiac valvular Doppler Findings Procedure Information Contrast agent, definity, is being given per protocol without apparent complications. Left Ventricle Normal left ventricular size, thickness, and systolic function. The visually estimated ejection fraction is between 55-60%. Spectral Doppler is indicative of an impaired relaxation filling pattern. E/E prime ratio is <8, consistent with normal filling pressures. Evidence suggests grade I (mild) diastolic dysfunction. Right Ventricle Normal right ventricular cavity size. Atria The left atrium is normal in size. Interatrial shunt cannot be excluded. The right atrium was not well visualized. Aortic Valve The aortic valve was not well visualized. There is no aortic valve stenosis. There is no aortic valve regurgitation. Mitral Valve The mitral valve was not well visualized. There is no mitral valve regurgitation. Pulmonic Valve The pulmonic valve was not well visualized. Tricuspid Valve The tricuspid valve was not well visualized. Tricuspid regurgitation envelope is inadequate for calculation of right ventricular systolic pressure. Normal right atrial pressure. Great Vessels All visible segments of the aorta are normal in size. The pulmonary artery was not well visualized. Venous The inferior vena cava is normal in size and collapses greater than 50% with inspiration. Pericardium/Pleural The pericardium was not well visualized. Prior Study Comparison No prior study available for comparison. Measurements 2D Linear Measurements IVSd: 0.77 0.6-0.9/0.6-1.0 cm LVIDd: 4.28 3.9-5.3/4.2-5.9 cm LVIDd Index: 2.66 2.4-3.2/2.2-3.1 cm/m2 LVIDs: 2.62 2.0-3.6 cm LVPWd: 0.67 0.7-1.1 cm LA Diam: 2.80 2.7-3.8/3.0-4.0 cm LAIDs Index: 1.74 1.5-2.3 cm/m2 LV Mass: 113.40 67-162/88-224 g LV Mass Index: 70.44 43-95/49-115 g/m2 LVOT Diam: 2.00 3.0+(-)1.3 cm 2D Systolic Function EF 4C: 56.10 >55% EF 2C: 50.70 >55% Mitral Valve MV Pk E: 0.72 MV PK A: 0.84 MV Decel Time: 126.00 E/A: 0.80 E'Lateral: 13.70 E'Medial: 9.90 E/E' Med: 7.20 E/E' Lat: 5.20 PHT: 37.00 MVA PHT: 5.95 Decel [place]: 5.66 Aortic Valve AoV Pk Mello: 1.21 AoV Mn Mello: 0.83 AoV VTI: 0.23 AoV Pk Grad: 6.00 Aov Mn Grad: 3.00 DIANNE Cont.VTI: 1.98 LVOT LVOT Pk Mello: 0.74 LVOT Mn Mello: 0.50 LVOT VTI: 0.15 LVOT Pk Grad: 2.00 LVOT Mn Grad: 1.00 LVOT Diam: 2.00 LVOT Area: 3.14 Diastolic Function MV Pk E: 0.72 MV Pk A: 0.84 E/A: 0.80 E'Medial: 9.90 E/E' Med: 7.20 E' Laterial: 13.70 E/E' Lat: 5.20 Right Ventricle TAPSE (mm): 19.60 TVS' Mello: 10.90 Tricuspid Valve RA Press: 3.00 Great Vessels Aorta Sinus of Valsalva: 2.71 2.0-3.5 cm Ao Asc: 2.70 2.1-3.4 cm Updated in Other Vendor System with Status of Final Yomi Campbell MD electronically signed on 09/25/2023 4:58:11 PM with status of Final
== END ==
LOC: HO.CARD 13:23
PROVIDERS: PCP Internal Medicine; Visit Provider Nurse Practitioner Family
DX: R07.9 Chest pain, unspecified (principal); R53.83 Other fatigue; R06.00 Dyspnea, unspecified
CPT/HCPCS: 93306

== ENCOUNTER → 2023-09-24 13:28 | Outpatient (BNV) | payer OTHER, SELFPAY | PROVIDERS: PCP Internal Medicine; Visit Provider Internal Medicine Cardiovascular Disease | DX: I51.9 Heart disease, unspecified (principal); R07.9 Chest pain, unspecified | CPT/HCPCS: 93306 ==

== ENCOUNTER → 2023-10-07 13:05 | Outpatient (REF) | payer OTHER, SELFPAY | LOC: HO.SL 13:05 | PROVIDERS: Visit Provider Nurse Practitioner Family | DX: J44.9 Chronic obstructive pulmonary disease, unspecified (principal); Z91.09 Other allergy status, other than to drugs and biological substances; G47.10 Hypersomnia, unspecified; R53.83 Other fatigue; R06.00 Dyspnea, unspecified; F17.210 Nicotine dependence, cigarettes, uncomplicated; Z79.899 Other long term (current) drug therapy | CPT/HCPCS: 99212 ==

== ENCOUNTER 2023-10-07 15:46 | Outpatient (AMB) | payer OTHER, SELFPAY ==
--- NOTE | 2023-10-07 15:53 | A.OFFVIS_ITS ---
Intake Vital Signs 10/07/23 15:54 Height 4 ft 11 in Weight 153 lb 3.54 oz BMI 30.9 BP 109/60 Blood Pressure Location Rt brachial Position Sitting Pulse 116 H Pulse Source Doppler Pulse Oximetry (%) 97 Oxygen Delivery Method Room Air Intake Visit Reasons: COPD Allergies morphine [MORPHINE] Allergy (Severe, Verified 10/07/23 15:59) anaphylaxis ondansetron [From ZOFRAN ( HYDROCHLORIDE)] Allergy (Severe, Verified 10/07/23 15:59) Hives acetaminophen [From FIORICET] Allergy (Intermediate, Verified 10/07/23 15:59) abdominal pain butalbital [From FIORICET] Allergy (Intermediate, Verified 10/07/23 15:59) Abdominal Pain caffeine [From FIORICET] Allergy (Intermediate, Verified 10/07/23 15:59) Abdominal Pain ibuprofen [From MOTRIN] Allergy (Intermediate, Verified 10/07/23 15:59) Abdominal Pain ketorolac [From TORADOL] Allergy (Intermediate, Verified 10/07/23 15:59) Abdominal Pain naproxen [NAPROXEN] Allergy (Intermediate, Verified 10/07/23 15:59) Abdominal Pain nicotine [From NICODERM CQ] Allergy (Intermediate, Verified 10/07/23 15:59) MIGRAINE, rash, headache tramadol Allergy (Intermediate, Verified 10/07/23 15:59) abdominal pain, chest pain sumatriptan [From Imitrex] Adverse Reaction (Severe, Verified 10/07/23 15:59) chest pain HPI COPD HPI Details 48-year-old lady, recent 40+ pack-year s moker, now followed for asthma/COPD overlap syndrome and environmental allergies.? Patient has been using her Advair and albuterol MDI, still with suboptimal control of his symptoms. Now she complains of cough productive of whitish sputum. [facility] Medical History Declined smoking cessation Hot flashes Chalazion of right eyelid Annual physical exam Chest pain Depression Blurry vision Overweight Nausea Muscle spasm GERD (gastroesophageal reflux disease) Surgical History History of hemorrhoidectomy History of tubal ligation History of section History of appendectomy History of cholecystectomy Family History Father Diabetes Mother Depression Hypertension Maternal Aunt Uterine cancer Social History Housing: Apartment Alcohol intake: former Patient Tobacco Use Status: Current everyday Tobacco user Tobacco use type: Cigarette Cigarettes Per Day: 10 e-Cigarette/Vaping Use: Never Used Second Hand Smoke Exposure: No service: No Current occupational status: unemployed Cognitive needs: No Hearing needs: No Vision needs: No Female Reproductive History Menstrual Age of Menarche: 15 Review of Systems Const Denies daytime sleepiness, Denies excessive sweating, Denies fatigue, Denies fever(s), Denies lethargy, Denies malaise, Denies night sweats, Denies snoring and Denies weight loss Eyes Denies blurry vision and Denies itchy eyes ENT Denies nasal congestion, Denies post nasal drip, Denies sinus pain, Denies sinus pressure and Denies other ( Thrush) Card Denies chest pain, Denies pedal edema, Denies dyspnea, Denies orthopnea and Denies paroxysmal nocturnal dyspnea Resp Reports cough, Denies hemoptysis, Reports excessive phlegm production, Denies dyspnea, Denies snoring and Denies wheezing GI Denies abdominal pain and Denies heartburn Musc Denies myalgias, Denies arthralgias and Denies joint swelling Skin/Breast Denies rash Neuro Denies memory loss and Denies seizure-like activity Psych Denies abnormal sleep pattern, Denies anxiety and Denies memory loss Endo Denies excessive sweating, Denies fatigue and Denies heat intolerance Hiram/Lymph Denies easy bruising Aller/Immun Denies itchy eyes, Denies seasonal rhinorrhea and Denies wheezing Physical Exam Vital Signs: Last Vital Signs Pulse 116 H 10/07/23 15:54 BP 109/60 10/07/23 15:54 Pulse Ox 97 10/07/23 15:54 Oxygen Delivery Method Room Air 10/07/23 15:54 BMI result Body Mass Index 30.9 Const General: no acute distress and alert Nutritional Appearance: not obese Orientation/consciousness: Other orientation findings ( oriented) HEENT Head: Yes atraumatic Eyes General: appearance normal, both eyes and all related structures Sclerae: sclerae normal EOM: EOMs intact bilaterally Neck Neck: Yes supple Lymphatic: no lymphadenopathy noted Resp Effort & Inspection: normal respiratory effort and no use of accessory muscles Auscultation: clear to auscultation bilaterally Cardio Rate: regular rate Rhythm: regular rhythm Heart sounds: no gallops, no murmurs and no rubs Skin General skin exam: other ( warm) Extrem General: No clubbing, No cyanosis and No edema Assessment & Plan Assessment & Plan (1) Asthma-COPD overlap syndrome: Code(s): J44.9 - Chronic obstructive pulmonary disease, unspecified Plan: Suboptimal control on Advair and albuterol MDI. Will add Spiriva. Will treat bronchitic exacerbation with a course of Levaquin. (2) Environmental allergies: Code(s): Z91.09 - Other allergy status, other than to drugs and biological substances Plan: Well controlled on [id number] Zyrtec. Continue current regimen. Medications: New levofloxacin 750 mg PO DAILY 7 tabs 0RF 7 days tiotropium bromide 2.5 mcg/actuation (Spiriva Respimat) 2 puffs inhalation QAM 4 grams 6RF 30 days Quality Reporting (2019) Adult ([facility] 138/01/22/69) Smoking risk assessment performed?: Yes Patient Tobacco Use Status: Current everyday Tobacco user Coding Level of Care Code Est Pt Level 4 (60036) Diagnoses Asthma-COPD overlap syndrome J44.9 Environmental allergies Z91.09
[2023-10-07 15:54] VITALS: BP 109/60; PULSE 116; O2SAT 97; BMI 30.9
== END 2023-10-07 16:07 | disposition home or self-care (01) ==
PROVIDERS: PCP Internal Medicine; Visit Provider Internal Medicine Pulmonary Disease
DX: J44.9 Chronic obstructive pulmonary disease, unspecified (principal); Z91.09 Other allergy status, other than to drugs and biological substances
CPT/HCPCS: 99214

== ENCOUNTER 2023-12-18 15:49 | Outpatient (AMB) | payer OTHER, SELFPAY ==
[2023-12-18 15:53] VITALS: BP 110/68; BMI 31.3
--- NOTE | 2023-12-18 15:53 | MHC.PC.OV ---
Vital Signs 12/18/23 15:53 Height 4 ft 11 in Weight 155 lb BMI 31.3 BP 110/68 Blood Pressure Location Lt brachial Position Sitting Intake Visit Reasons: Annual PE Intake Note: Patient here for a physical exam, xray request,? internal hemorrhoids [employer] Required: No Accompanied by: Spouse Allergies ciprofloxacin [From Cipro] Allergy (Severe, Verified 12/18/23 16:12) throat swelling, rash morphine [MORPHINE] Allergy (Severe, Verified 12/18/23 16:12) anaphylaxis ondansetron [From ZOFRAN ( HYDROCHLORIDE)] Allergy (Severe, Verified 12/18/23 16:12) Hives acetaminophen [From FIORICET] Allergy (Intermediate, Verified 12/18/23 16:12) abdominal pain butalbital [From FIORICET] Allergy (Intermediate, Verified 12/18/23 16:12) Abdominal Pain caffeine [From FIORICET] Allergy (Intermediate, Verified 12/18/23 16:12) Abdominal Pain ibuprofen [From MOTRIN] Allergy (Intermediate, Verified 12/18/23 16:12) Abdominal Pain ketorolac [From TORADOL] Allergy (Intermediate, Verified 12/18/23 16:12) Abdominal Pain naproxen [NAPROXEN] Allergy (Intermediate, Verified 12/18/23 16:12) Abdominal Pain nicotine [From NICODERM CQ] Allergy (Intermediate, Verified 12/18/23 16:12) MIGRAINE, rash, headache tramadol Allergy (Intermediate, Verified 12/18/23 16:12) abdominal pain, chest pain sumatriptan [From Imitrex] Adverse Reaction (Severe, Verified 12/18/23 16:12) chest pain Medication List - Last Reconciled 12/18/23 by Dayana Morris MD amoxicillin-pot clavulanate 875-125 mg 1 tab PO BID 10 days clonidine HCl 0.2 mg PO TID cyclobenzaprine 10 mg PO Q8H PRN 90 days fluticasone propion-salmeterol 230-21 mcg/actuation (Advair HFA) 2 puffs inhalation Q12H ipratropium-albuterol 0.5 mg-3 mg(2.5 mg base)/3 mL 3 mL inhalation Q4-6H PRN 30 days mirtazapine 45 mg PO BEDTIME pantoprazole 40 mg PO DAILY 90 days prazosin 1 mg PO BEDTIME promethazine 25 mg PO BID PRN quetiapine 25 mg PO BEDTIME tiotropium bromide 2.5 mcg/actuation (Spiriva Respimat) 2 puffs inhalation QAM 30 days varenicline 1 ea PO DIRECTED Ventolin HFA 90 mcg/actuation (albuterol sulfate) 2 puffs inhalation Q4-6H PRN 30 days NS Tobacco use date assessed: 12/18/23 Dental Screening Dental Screen Date: 12/18/23 Did you have a dental visit in the last 12 months?: Yes Did you have a dental problem in the last 6 months where you did not have access to dental care?: No Was dental information given to patient?: Patient has dentist HPI HPI Comments History of Present Illness Details This is a 48-year-old female that comes for her physical exam accompanied by . Has not had a mammogram in over a year. Has never had a colonoscopy and has blood in the stools for the past month. Pap smear done 2022 was normal. Complains of lower right rib pain. No chest pain or shortness of breath. Has asthma-COPD overlap syndrome controlled with long-acting inhaler. [facility] Medical History Declined smoking cessation Hot flashes Chalazion of right eyelid Annual physical exam Chest pain Depression Blurry vision Overweight Nausea Muscle spasm GERD (gastroesophageal reflux disease) Surgical History History of hemorrhoidectomy History of tubal ligation History of section History of appendectomy History of cholecystectomy Family History Father Diabetes Mother Depression Hypertension Maternal Aunt Uterine cancer Family/Other Mental health disorder Substance use disorder Social History Housing: Apartment Alcohol intake: former Patient Tobacco Use Status: Current everyday Tobacco user Tobacco use type: Cigarette Cigarettes Per Day: 10 e-Cigarette/Vaping Use: Never Used Second Hand Smoke Exposure: No service: No Current occupational status: unemployed Cognitive needs: No Hearing needs: No Vision needs: No Female Reproductive History Menstrual Age of Menarche: 15 Questionnaire PHQ-9 Over the last 2 weeks, how often have you been bothered by any of the following problems? 1. Little interest or pleasure in doing things: not at all 2. Feeling down, depressed, or hopeless: not at all 3. Trouble falling or staying asleep, or sleeping too much: not at all 4. Feeling tired or having little energy: several days 5. Poor appetite or overeating: several days 6. Feeling bad about yourself - or that you are a failure or have let yourself or your family down: not at all 7. Trouble concentrating on things, such as reading the newspaper or watching television: not at all 8. Moving or speaking so slowly that other people could have noticed. Or the opposite - being so fidgety or restless that you have been moving around a lot more than usual: not at all 9. Thoughts that you would be better off or of hurting yourself in some way: not at all Total score: 2 Depression Screening Interpretation: Negative Depression Screening Done: Yes 48094 - PHQ-9 Billing: Yes Source: Developed by Drs. Wilfred Pineda, Sophy Van, Honorio Lennon and colleagues, with an educational fidencio from [employer]. Thrive Questionnaire Date Thrive assessed: 12/18/23 I am a: Patient What is your living situation today?: I have a steady place to live Within the past 12 months, did the food you bought not last and you didn't have the money to get more?: Never true Within the past 12 months, did you worry whether your food would run out before you got money to buy more?: Never true Do you have trouble paying for medicines?: No Do you have trouble getting transportation to medical appointments?: No Do you have trouble paying your heating and electricity bill?: No Do you have trouble taking care of your child, family member or friend?: No Do you have trouble with day-to-day activities such as bathing, preparing meals, shopping, managing finances, etc.?: No Are you currently unemployed and looking for a job?: No Are you interested in more education?: No Please select the resources that you would like help with: None Currently or been in a relationship where the following occur: no concerns reported AUDIT C Alcohol Use Questionnaire (AUDIT-C) 1. How often do you have a drink containing alcohol?: Never Total Score: 0 Score Reviewed/Action Taken: No RAINER-7 AMB Questionnaire RAINER-7 Date RAINER - 7 assessed: 12/18/23 Feeling nervous, anxious, or on edge: 0 = Not at all Not being able to stop or control worryin = Not at all Worrying too much about different things: 0 = Not at all Trouble relaxin = Not at all Being so restless that it is hard to sit still: 0 = Not at all Becoming easily annoyed or irritable: 0 = Not at all Feeling afraid as if something awful might happen: 0 = Not at all Total RAINER-7 score (0-4 normal; 5-9 mild; 10-14 moderate; 15-21 severe): 0 Source: Developed by Drs. Wilfred Pienda, Sophy Van, Honorio Lennon and colleagues, with an educational fidencio from [employer]. RAINER-7 Assessment Billing RAINER-7 Assessment Tool: RAINER-7 Assessment 03588 Review of Systems Const All systems reviewed & are unremarkable except as noted in HPI and below Eyes Reports no additional complaints, Denies change in vision and Denies other visual disturbances Card Denies chest pain at rest, Denies chest pain with activity, Denies edema, Denies irregular heart rhythm, Denies claudication, Denies dyspnea, Denies dyspnea on exertion, Denies orthopnea, Denies paroxysmal nocturnal dyspnea and Denies slow heart rate Resp Denies cough, Denies dyspnea and Denies dyspnea on exertion GI Denies abdominal pain, Denies change in bowel habits, Denies excessive flatus, Denies nausea and Denies vomiting Denies urinary incontinence, Denies urinary hesitancy and Denies urinary urgency Musc Denies atrophy, Denies deformity and Denies limited range of motion Physical exam (Primary Care) Vital Signs: Last Vital Signs BP 110/68 12/18/23 15:53 BMI result Body Mass Index 31.3 Tobacco/Smoking Status: Tobacco use Status Tobacco use date assessed 12/18/23 12/18/23 16:04 Patient Tobacco Use Status Current everyday Tobacco 12/18/23 16:04 Tobacco use type Cigarette 12/18/23 16:04 e-Cigarette/Vaping Use Never Used 12/18/23 16:04 PHQ-9: PHQ-9 Score PHQ-9: Total score 2 12/18/23 16:14 Depression Screening Interpretation: Negative Thrive Assessment: Date of Thrive Assessment Date Thrive assessed 12/18/23 12/18/23 16:04 Currently or been in a relationship where the following occur: no concerns reported Const Orientation/consciousness: patient oriented x3 [facility] Head: Yes normal to inspection, Yes normocephalic and Yes atraumatic Ears: external ears normal Eyes General: appearance normal, both eyes and all related structures Eyelids: Yes eyelids normal Conjunctivae: conjunctivae normal Neck Neck: Yes normal visual inspection and Yes supple Resp Effort & Inspection: normal respiratory effort Auscultation: clear to auscultation bilaterally Cardio Jugular venous distension: no JVD Rate: regular rate Rhythm: regular rhythm Heart sounds: S1 normal heart sound present and S2 normal heart sound present GI Inspection: Yes normal to inspection Palpation (GI): Soft to palpation and nontender Auscultation: normal bowel sounds Skin General skin exam: no rashes or lesions noted Neuro General: patient oriented x3 and no focal motor deficits Extrem General: Yes full ROM Psych Appearance: grossly normal Office Procedures Flu Questionnaire Does the patient have a severe egg allergy?: No Does the patient have severe life threatening allergies?: No Does the patient have a fever or illness today?: No Has the patient ever had Guillain-[place] Syndrome?: No Has the patient ever had any past reaction to a flu shot?: No Immunizations flu vacc [id number] 6mos up(PF) 60 mcg(15 mcgx4)/0.5 mL IM syringe Performing Provider: Dayana Morris MD Performing Location: [facility] Administered by: THEODORA Cordova on 12/18/23 16:28 Dose Route Admin Location Dispensed Lot Number Expiration Date NDC [employer] 0.5 mL IM Left Deltoid 0.5 mL [id number] 05/30/24 28557-697-70 [facility] VIS Given Date VIS Provided VIS Publication Date 12/18/23 Single Vaccine 21 Eligibility Eligibility Date Funding Source Not [facility] Eligible 12/18/23 Private Assessment and Plan Assessment & Plan (1) Physical exam: Code(s): Z00.00 - Encounter for general adult medical examination without abnormal findings Plan: Repeat in a year. (2) Asthma-COPD overlap syndrome: Code(s): J44.9 - Chronic obstructive pulmonary disease, unspecified Plan: Continue long-acting inhaler. Follow-up with pulmonology. Use rescue inhaler as needed. Orders: Orders Influenza [id number] Immunization Today Z23 - Encounter for immunization XR chest 2V Today R07.89 - Other chest pain XR ribs RT 2V Today R07.81 - Pleurodynia Lipid Panel Today Z00.00 - Encounter for general adult medical examination without abnormal findings Comprehensive [place]. Panel Fast Today Z00.00 - Encounter for general adult medical examination without abnormal findings MM screening mammo BI Today Z12.31 - Encounter for screening mammogram for malignant neoplasm of breast Referrals Open Access Screening Colonoscopy Referral Z12.11 - Encounter for screening for malignant neoplasm of colon Coding Level of Care Code Est Pt Prev Care 40-64y(30633) Diagnoses Physical exam Z00.00 Asthma-COPD overlap syndrome J44.9 Additional Codes RAINER-7 Assessment Billing - RAINER-7 Assessment Tool: RAINER-7 Assessment 36362 ([id number]) Time Spent (min) 31
== END 2023-12-18 16:29 | disposition home or self-care (01) ==
PROVIDERS: Visit Provider Internal Medicine
DX: Z00.00 Encounter for general adult medical examination without abnormal findings (principal); J44.9 Chronic obstructive pulmonary disease, unspecified; Z23 Encounter for immunization; F17.210 Nicotine dependence, cigarettes, uncomplicated
CPT/HCPCS: 90471; 90686; 99396

== ENCOUNTER 2024-01-27 08:18 | Outpatient (REF) | payer OTHER, SELFPAY ==
--- NOTE | ~2024-01-27 | XR_ITS ---
EXAMINATION: XR RIBS, RIGHT CLINICAL INFORMATION: Pleurodynia. COMPARISON: Chest radiographs dated 11/08/2022; CT chest dated 07/23/2017.. TECHNIQUE: 3 views of the right ribs were obtained. FINDINGS: Lungs are clear. There is right upper and mid lung formation again seen. No consolidation, pneumothorax, or pleural effusion. The cardiomediastinal silhouette and pulmonary vasculature are normal. Osseous structures are unremarkable. Ribs are intact. No fractures are identified. There are right upper quadrant surgical clips. XR/XR ribs RT 2V IMPRESSION: Unremarkable examination. Radiograph appearance of the right ribs
--- NOTE | ~2024-01-27 | XR_ITS ---
EXAMINATION: XR CHEST 2 VIEWS CLINICAL INFORMATION: Chest pain. COMPARISON: Prior chest radiographs, most recently 11/08/2022; CT chest dated 07/23/2017. TECHNIQUE: Frontal and lateral views of the chest were obtained. FINDINGS: The heart, great vessels, pulmonary vasculature and mediastinum are normal. The lungs show no focal infiltrate, effusion or pneumothorax. There is right apical and bilateral paramediastinal bullous formation. There is no acute osseous abnormality. XR/XR chest 2V IMPRESSION: No active cardiopulmonary disease. Emphysematous changes are redemonstrated.
[2024-01-27 10:52] LABS: Alanine Aminotransferase 10 U/L (0-31); Alkaline Phosphatase 99 U/L (39-117); Anion Gap 10 (12-20); Aspartate Amino Transferase 17 U/L (5-31); Bilirubin Total 0.3 mg/dL (0.0-1.0); Blood Urea Nitrogen 9 mg/dL (9-16); Calcium 9.2 mg/dL (8.4-10.2); Carbon Dioxide 29 mmol/L (22-29); Chloride 105 mmol/L (96-108); Cholesterol 171 mg/dL (<200); Estimated Glomerular Filt Rate > 60; Glucose Fasting 88 mg/dL (60-99); HDL Cholesterol 56 mg/dL (>40); LDL Cholesterol Calculated 66 mg/dL (<100); Potassium 3.7 mmol/L (3.3-5.1); Sodium 140 mmol/L (135-145); Total Protein 7.5 g/dL (6.5-8.0); Triglycerides 247 mg/dL (<150)
== END 2024-01-27 08:19 | disposition home or self-care (01) ==
LOC: HO.XRAY 08:18
PROVIDERS: PCP Internal Medicine; Visit Provider Internal Medicine
DX: R07.89 Other chest pain (principal); R07.81 Pleurodynia; Z00.00 Encounter for general adult medical examination without abnormal findings
CPT/HCPCS: 36415; 71046; 71100; 80053; 80061

== ENCOUNTER 2024-04-22 13:39 | Outpatient (AMB) | payer OTHER, SELFPAY ==
[2024-04-22 13:42] VITALS: BP 110/70; BMI 30.9
--- NOTE | 2024-04-22 13:42 | MHC.PC.OV ---
Vital Signs 04/22/24 13:42 Height 4 ft 11 in Weight 153 lb BMI 30.9 BP 110/70 Blood Pressure Location Lt brachial Position Sitting Intake Visit Reasons: hemorrhoids/bleeding Intake Note: Patient here for follow up hemorrhoids/bleeding, bruising, results Sexual Assault Counselor Required: No Accompanied by: Child Allergies ciprofloxacin [From Cipro] Allergy (Severe, Verified 04/22/24 14:03) throat swelling, rash morphine [MORPHINE] Allergy (Severe, Verified 04/22/24 14:03) anaphylaxis ondansetron [From ZOFRAN ( HYDROCHLORIDE)] Allergy (Severe, Verified 04/22/24 14:03) Hives acetaminophen [From FIORICET] Allergy (Intermediate, Verified 04/22/24 14:03) abdominal pain butalbital [From FIORICET] Allergy (Intermediate, Verified 04/22/24 14:03) Abdominal Pain caffeine [From FIORICET] Allergy (Intermediate, Verified 04/22/24 14:03) Abdominal Pain ibuprofen [From MOTRIN] Allergy (Intermediate, Verified 04/22/24 14:03) Abdominal Pain ketorolac [From TORADOL] Allergy (Intermediate, Verified 04/22/24 14:03) Abdominal Pain naproxen [NAPROXEN] Allergy (Intermediate, Verified 04/22/24 14:03) Abdominal Pain nicotine [From NICODERM CQ] Allergy (Intermediate, Verified 04/22/24 14:03) MIGRAINE, rash, headache tramadol Allergy (Intermediate, Verified 04/22/24 14:03) abdominal pain, chest pain sumatriptan [From Imitrex] Adverse Reaction (Severe, Verified 04/22/24 14:03) chest pain Medication List - Last Reconciled 04/22/24 by Dayana Morris MD clonidine HCl 0.2 mg PO TID cyclobenzaprine 10 mg PO Q8H PRN 90 days fluticasone propion-salmeterol 230-21 mcg/actuation (Advair HFA) 2 puffs inhalation Q12H ipratropium-albuterol 0.5 mg-3 mg(2.5 mg base)/3 mL 3 mL PO Q4-6H PRN mirtazapine 45 mg PO BEDTIME pantoprazole 40 mg PO DAILY 90 days prazosin 1 mg PO BEDTIME promethazine 25 mg PO BID PRN quetiapine 25 mg PO BEDTIME tiotropium bromide 2.5 mcg/actuation (Spiriva Respimat) 2 puffs inhalation QAM 30 days Ventolin HFA 90 mcg/actuation (albuterol sulfate) 2 puffs inhalation Q4-6H PRN 30 days NS Tobacco use date assessed: 12/18/23 Dental Screening Dental Screen Date: 12/18/23 HPI HPI Comments History of Present Illness Details This is a 49 year old female with asthma-COPD overlap syndrome, mild major depression, and GERD that complaints of bleeding hermorhoids that started few weeks ago. I will refer her to surgery for this matter. Asthma-COPD overlap syndrome has been stable with long-acting inhaler. She requires rescue inhaler once a month. Mild major depression has also been stable with medications and she follows with a psychiatrist. GERD stable with PPIs. Denies any chest pain or shortness a breath. [facility] Medical History (Updated 04/23/24 @ 14:58 by Dayana Morris MD) COPD (chronic obstructive pulmonary disease) Declined smoking cessation Hot flashes Chalazion of right eyelid Annual physical exam Chest pain Depression Blurry vision Overweight Nausea Muscle spasm GERD (gastroesophageal reflux disease) Surgical History History of hemorrhoidectomy History of tubal ligation History of section History of appendectomy History of cholecystectomy Family History Father Diabetes Mother Depression Hypertension Maternal Aunt Uterine cancer Family/Other Mental health disorder Substance use disorder Social History Housing: Apartment Alcohol intake: former Patient Tobacco Use Status: Current everyday Tobacco user Tobacco use type: Cigarette Cigarettes Per Day: 5 e-Cigarette/Vaping Use: Never Used Second Hand Smoke Exposure: No service: No Current occupational status: unemployed Cognitive needs: No Hearing needs: No Vision needs: No Female Reproductive History Menstrual Age of Menarche: 15 Questionnaire PHQ-9 Over the last 2 weeks, how often have you been bothered by any of the following problems? 1. Little interest or pleasure in doing things: several days 2. Feeling down, depressed, or hopeless: several days 3. Trouble falling or staying asleep, or sleeping too much: several days 4. Feeling tired or having little energy: several days 5. Poor appetite or overeating: not at all 6. Feeling bad about yourself - or that you are a failure or have let yourself or your family down: not at all 7. Trouble concentrating on things, such as reading the newspaper or watching television: not at all 8. Moving or speaking so slowly that other people could have noticed. Or the opposite - being so fidgety or restless that you have been moving around a lot more than usual: not at all 9. Thoughts that you would be better off or of hurting yourself in some way: not at all Total score: 4 Depression Screening Interpretation: Positive Depression Screening Follow-up: Existing condition, In treatment, Community Mental Health Worker F/U and Follow-up Visit Requested Depression Screening Done: Yes 54084 - PHQ-9 Billing: Yes Source: Developed by Drs. Wilfred Pinead, Sophy Van, Honorio Lennon and colleagues, with an educational fidencio from [employer]. Thrive Questionnaire Date Thrive assessed: 12/18/23 RAINER-7 AMB Questionnaire RAINER-7 Date RAINER - 7 assessed: 12/18/23 Source: Developed by Drs. Wilfred Pineda, Sophy Van, Honorio Lennon and colleagues, with an educational fidencio from [employer]. Review of Systems Const All systems reviewed & are unremarkable except as noted in HPI and below Card Denies chest pain at rest, Denies chest pain with activity, Denies edema, Denies irregular heart rhythm, Denies claudication, Denies dyspnea, Denies dyspnea on exertion, Denies orthopnea, Denies paroxysmal nocturnal dyspnea and Denies slow heart rate Resp Denies cough, Denies dyspnea and Denies dyspnea on exertion Physical exam (Primary Care) Vital Signs: Last Vital Signs BP 110/70 04/22/24 13:42 BMI result Body Mass Index 30.9 Tobacco/Smoking Status: Tobacco use Status Tobacco use date assessed 12/18/23 04/22/24 13:45 Patient Tobacco Use Status Current everyday Tobacco 04/22/24 13:45 Tobacco use type Cigarette 04/22/24 13:45 e-Cigarette/Vaping Use Never Used 04/22/24 13:45 Depression Screening Interpretation: Positive Depression Screening Follow-up: Existing condition, In treatment, Community Mental Health Worker F/U and Follow-up Visit Requested Thrive Assessment: Date of Thrive Assessment Date Thrive assessed 12/18/23 04/22/24 13:45 Resp Effort & Inspection: normal respiratory effort Auscultation: clear to auscultation bilaterally Cardio Jugular venous distension: no JVD Rate: regular rate Rhythm: regular rhythm Heart sounds: S1 normal heart sound present and S2 normal heart sound present Extrem General: Yes full ROM Psych Appearance: grossly normal Assessment and Plan Assessment & Plan (1) Bleeding hemorrhoids: Code(s): K64.9 - Unspecified hemorrhoids Plan: Referred to surgery. (2) Asthma-COPD overlap syndrome: Code(s): J44.9 - Chronic obstructive pulmonary disease, unspecified Plan: Continue Advair. Use rescue inhaler as needed. (3) GERD (gastroesophageal reflux disease): Code(s): K21.9 - Gastro-esophageal reflux disease without esophagitis Qualifiers: Esophagitis presence: esophagitis presence not specified Qualified Code(s): K21.9 - Gastro-esophageal reflux disease without esophagitis Plan: Continue PPIs. (4) Mild major depression: Code(s): F32.0 - Major depressive disorder, single episode, mild Plan: Continue mirtazapine and Seroquel. Follow-up with psychiatry. Orders: Orders Complete Blood Count Auto Diff 04/22/24 D64.9 - Anemia, unspecified IRON PROFILE 04/22/24 D64.9 - Anemia, unspecified Referrals General Surgery Referral K64.9 - Unspecified hemorrhoids Coding Level of Care Code Est Pt Level 4 (03128) Diagnoses Bleeding hemorrhoids K64.9 Asthma-COPD overlap syndrome J44.9 Gastroesophageal reflux disease, unspecified whether esophagitis present K21.9 Esophagitis presence: esophagitis presence not specified Mild major depression F32.0 Time Spent (min) 23
== END 2024-04-22 14:14 | disposition home or self-care (01) ==
PROVIDERS: PCP Internal Medicine; Visit Provider Internal Medicine
DX: K64.9 Unspecified hemorrhoids (principal); J44.9 Chronic obstructive pulmonary disease, unspecified; K21.9 Gastro-esophageal reflux disease without esophagitis; F32.0 Major depressive disorder, single episode, mild
CPT/HCPCS: 99214

== ENCOUNTER 2024-04-22 14:22 | Outpatient (REF) | payer OTHER, SELFPAY ==
[2024-04-22 14:37] LABS: MANUAL DIFF FLAG NO
[2024-04-22 15:13] LABS: Basophils Absolute Auto 0.1 X10*3/uL (0.0-0.2); Basophils Percent Auto 0.8 % (0-2); Eosinophils Absolute Auto 0.2 X10*3/uL (0.0-0.4); Eosinophils Percent Auto 2.6 % (0-4); Hematocrit 34.9 % (37.0-47.0); Hemoglobin 11.4 g/dl (12.0-16.0); Imm Gran Abs Auto 0.02 X10*3/uL (0.00-0.03); Imm Gran Pct Auto 0.2 % (0.0-0.4); Lymphocytes Absolute Auto 2.4 X10*3/uL (1.2-4.9); Lymphocytes Percent Auto 26.5 % (20-40); Mean Corpuscular HGB Conc 32.7 g/dl (31.0-35.0); Mean Corpuscular Hemoglobin 28.4 pg (27.0-33.0); Mean Platelet Volume 9.6 fL (9.4-12.3); Monocytes Absolute Auto 0.8 X10*3/uL (0.1-1.2); Monocytes Percent Auto 9.3 % (2-11); Neutrophils Absolute Auto 5.4 x10*3/uL (2.0-8.3); Neutrophils Percent Auto 60.6 % (45-73); Platelet Count 462 X10*3/uL (160-400); Red Blood Count 4.01 X10*6/uL (4.20-5.50); Red Cell Distribution Width 14.6 % (11.0-16.0); White Blood Count 8.9 X10*3/uL (4.8-10.8)
[2024-04-22 15:44] LABS: Iron 44 mcg/dL (30-160); Percent Iron Saturation 15 % (15-50); Total Iron Binding Capacity 284 mcg/dL (228-428); Unsaturated Iron Binding 240 ug/dL
== END 2024-04-22 14:23 | disposition home or self-care (01) ==
LOC: HO.LAB 14:22
PROVIDERS: PCP Internal Medicine; Visit Provider Internal Medicine
DX: D64.9 Anemia, unspecified (principal)
CPT/HCPCS: 36415; 83540; 85025

== ENCOUNTER 2024-05-04 10:53 | Outpatient (AMB) | payer OTHER, SELFPAY ==
--- NOTE | 2024-05-04 11:00 | MHC.OFFVIS ---
Vital Signs 05/04/24 11:05 Height 4 ft 11 in Weight 149 lb BMI 30.1 BP 110/56 L Blood Pressure Location Rt brachial Position Sitting Pulse 85 Intake Visit Reasons: Bleeding hemorroid Intake Note: Patient referred by PCP Dr. Cong Morris for bleeding hemorrhoids. Reports incidents since yrs. Patient c/o: hx of hemorrhoidectomy in 2011. Bleeding hemorrhoid flares 3days before menstrual cycle. Orthotic Finish Grinding Technician Required: No Accompanied by: Self / Same As Patient Allergies ciprofloxacin [From Cipro] Allergy (Severe, Verified 05/04/24 11:03) throat swelling, rash morphine [MORPHINE] Allergy (Severe, Verified 05/04/24 11:03) anaphylaxis ondansetron [From ZOFRAN ( HYDROCHLORIDE)] Allergy (Severe, Verified 05/04/24 11:03) Hives acetaminophen [From FIORICET] Allergy (Intermediate, Verified 05/04/24 11:03) abdominal pain butalbital [From FIORICET] Allergy (Intermediate, Verified 05/04/24 11:03) Abdominal Pain caffeine [From FIORICET] Allergy (Intermediate, Verified 05/04/24 11:03) Abdominal Pain ibuprofen [From MOTRIN] Allergy (Intermediate, Verified 05/04/24 11:03) Abdominal Pain ketorolac [From TORADOL] Allergy (Intermediate, Verified 05/04/24 11:03) Abdominal Pain naproxen [NAPROXEN] Allergy (Intermediate, Verified 05/04/24 11:03) Abdominal Pain nicotine [From NICODERM CQ] Allergy (Intermediate, Verified 05/04/24 11:03) MIGRAINE, rash, headache tramadol Allergy (Intermediate, Verified 05/04/24 11:03) abdominal pain, chest pain sumatriptan [From Imitrex] Adverse Reaction (Severe, Verified 05/04/24 11:03) chest pain Medication List - Last Reconciled 05/04/24 by Phong Diaz MD clonidine HCl 0.2 mg PO TID cyclobenzaprine 10 mg PO Q8H PRN 90 days fluticasone propion-salmeterol 230-21 mcg/actuation (Advair HFA) 2 puffs inhalation Q12H hydrocortisone 2.5% 1 appl [place] BID-QID PRN ipratropium-albuterol 0.5 mg-3 mg(2.5 mg base)/3 mL 3 mL PO Q4-6H PRN mirtazapine 45 mg PO BEDTIME mirtazapine 45 mg PO BEDTIME pantoprazole 40 mg PO DAILY 90 days prazosin 1 mg PO BEDTIME promethazine 25 mg PO BID PRN quetiapine 25 mg PO BEDTIME quetiapine (Seroquel) 25 mg PO BEDTIME tiotropium bromide 2.5 mcg/actuation (Spiriva Respimat) 2 puffs inhalation QAM 30 days Ventolin HFA 90 mcg/actuation (albuterol sulfate) 2 puffs inhalation Q4-6H PRN 30 days NS HPI Comments Details: Patient presents because of a symptomatic hemorrhoid. She has had pain and swelling and bleeding from this for the last several months time. Patient had a prior hemorrhoidectomy in 2011. She has never had colonoscopy but is scheduled to see GI within the next few weeks for a screening colonoscopy. She does have history of occasional constipation with hard stool. She has had a variety of stool regimens as well as topical agents regarding this hemorrhoid issue. Patient denies any anal receptive practice. Chart was reviewed and patient evaluated [facility] Medical History (Updated 04/23/24 @ 14:58 by Dayana Morris MD) COPD (chronic obstructive pulmonary disease) Declined smoking cessation Hot flashes Chalazion of right eyelid Annual physical exam Chest pain Depression Blurry vision Overweight Nausea Muscle spasm GERD (gastroesophageal reflux disease) Surgical History (Updated 05/04/24 @ 13:10 by Phong Diaz MD) History of hemorrhoidectomy History of tubal ligation History of section History of appendectomy History of cholecystectomy Family History Father Diabetes Mother Depression Hypertension Maternal Aunt Uterine cancer Family/Other Mental health disorder Substance use disorder Social History Housing: Apartment Alcohol intake: former Patient Tobacco Use Status: Current everyday Tobacco user Tobacco use type: Cigarette Cigarettes Per Day: 5 e-Cigarette/Vaping Use: Never Used Second Hand Smoke Exposure: No service: No Current occupational status: unemployed Cognitive needs: No Hearing needs: No Vision needs: No Female Reproductive History Menstrual Age of Menarche: 15 Physical Exam Vital Signs: Last Vital Signs Pulse 85 05/04/24 11:05 BP 110/56 L 05/04/24 11:05 BMI result Body Mass Index 30.1 Chest Other: Chest breath sounds bilaterally, HS 1 in 2 GI Other: Abdomen is soft, benign. Very large left lateral external hemorrhoid. Patient has a very small posterior anal fissure. Rectal exam was deferred secondary to the patient's discomfort Quality Reporting (2020) Adult ([facility] 138/01/22/69) Smoking risk assessment performed?: Yes Patient Tobacco Use Status: Current everyday Tobacco user Assessment & Plan Assessment & Plan (1) Bleeding hemorrhoids: Code(s): K64.9 - Unspecified hemorrhoids Category: Surgical (2) Anal fissure: Code(s): K60.2 - Anal fissure, unspecified Category: Surgical Plan Therapeutic options for hemorrhoid are to continue conservative therapy with stool softeners and local wound care or excision. She would like to proceed with the latter/hemorrhoidectomy. Risks, benefits, and alternatives of external hemorrhoidectomy were reviewed with the patient and included but not limited to bleeding, infection, recurrence, numbness, pain, scarring, incontinence and the patient wished to proceed. All questions answered. Arrangements were made for this. Patient will receive a many bowel prep day prior. Regarding the posterior anal fissure, discussion was had again about a good bowel regimen including drinking lot of water, eating roughage, bran, variety of stool softeners including Metamucil, Citrucel, etc. and avoid prolonged sitting on the toilet and avoiding constipation and straining. Medications: New hydrocortisone 2.5% 1 appl UT BID-QID PRN 30 grams 0RF hemorrhoids Coding Level of Care Code New Pt Level 5 (18753) Diagnoses Bleeding hemorrhoids K64.9 Anal fissure K60.2
[2024-05-04 11:05] VITALS: BP 110/56; PULSE 85; BMI 30.1
== END 2024-05-04 11:34 | disposition home or self-care (01) ==
PROVIDERS: PCP Internal Medicine; Referring Provider Internal Medicine; Visit Provider Surgery
DX: K64.9 Unspecified hemorrhoids (principal); K60.2 Anal fissure, unspecified
CPT/HCPCS: 99204

== ENCOUNTER → 2024-05-04 10:53 | Outpatient (BNVA) | payer OTHER, SELFPAY | PROVIDERS: PCP Internal Medicine; Referring Provider Internal Medicine; Visit Provider Surgery | DX: K64.9 Unspecified hemorrhoids (principal); K60.2 Anal fissure, unspecified | CPT/HCPCS: 99202 ==

== ENCOUNTER 2024-06-10 08:21 | Day surgery (SDC) | payer OTHER, SELFPAY ==
[2024-06-04 11:13] VITALS: BMI 29.9
[2024-06-04 11:23] VITALS: BP 98/51; PULSE 76; RESP 20; O2SAT 97
--- NOTE | 2024-06-09 08:34 | MHC.SHP ---
Pre-Procedural Eval Section A - 24 Hr Update-Section A only Date of Service: 06/10/24 The patient is an INPATIENT: No Changes since office visit: No Cold of Flu in the past 2 weeks, No New Medical Problems, No Changes in Medication and No Patient answered all questions Section B - Complete if H&P > 30 days Chief Complaint: Anal fissure,hemorrhoids Allergies: Allergies Allergy/AdvReac Type Severity Reaction Status Date / Time ciprofloxacin [From Cipro] Allergy Severe throat Verified 05/04/24 11:03 swelling, rash morphine [MORPHINE] Allergy Severe anaphylaxi Verified 05/04/24 11:03 s ondansetron Allergy Severe Hives Verified 05/04/24 11:03 [From ZOFRAN ( HYDROCHLORIDE)] acetaminophen [From FIORICET] Allergy Intermediate abdominal Verified 05/04/24 11:03 pain butalbital [From FIORICET] Allergy Intermediate Abdominal Verified 05/04/24 11:03 Pain caffeine [From FIORICET] Allergy Intermediate Abdominal Verified 05/04/24 11:03 Pain ibuprofen [From MOTRIN] Allergy Intermediate Abdominal Verified 05/04/24 11:03 Pain ketorolac [From TORADOL] Allergy Intermediate Abdominal Verified 05/04/24 11:03 Pain naproxen [NAPROXEN] Allergy Intermediate Abdominal Verified 05/04/24 11:03 Pain nicotine [From NICODERM CQ] Allergy Intermediate MIGRAINE, Verified 05/04/24 11:03 rash, headache tramadol Allergy Intermediate abdominal Verified 05/04/24 11:03 pain, chest pain sumatriptan [From Imitrex] AdvReac Severe chest pain Verified 05/04/24 11:03 Plan I have reviewed the history and physical and performed a pertinent physical examination on my patient. No changes have occurred unless specified. Time Spent With Patient Time: Total time managing care of this patient today ____ minutes.
[2024-06-10 08:41] VITALS: BP 110/48; PULSE 75; RESP 15; TEMP 36.1; O2SAT 96
[2024-06-10] MEDS: Lactated Ringers 1,000 ML 100 ML IVCONT (08:55)
--- NOTE | 2024-06-10 09:35 | HO.ANESPROP2 ---
Documented by User: Donna Whittaker NP 06/09/24 12:07 HPI - Anesthesia Eval Consult details Narrative: 49yo F for Hemorrhoidectomy,lithotomy 06/04/[address] Sanchez s/p tubal PMFSH Active Problems Active Problems: All Active Problems Anal fissure (Acute) Mild major depression (Acute) Bleeding hemorrhoids (Acute) Physical exam (Acute) Rib pain on right side (Acute) Chest wall pain (Acute) Hypersomnia (Acute) Fatigue (Acute) Intermittent left-sided chest pain (Acute) Environmental allergies (Acute) Asthma-COPD overlap syndrome (Acute) WEI (dyspnea on exertion) (Acute) Chest pain (Acute) Hot flashes (Acute) Depression (Acute) Blurry vision (Acute) Overweight (Acute) Nausea (Acute) Muscle spasm (Acute) GERD (gastroesophageal reflux disease) (Acute) Past Medical History Medical History (Updated 06/10/24 @ 08:34 by Malgorzata Brambila, RN) Migraine Seizure Atypical chest pain Declined smoking cessation Hot flashes Chalazion of right eyelid Annual physical exam COPD (chronic obstructive pulmonary disease) Depression Blurry vision Overweight Nausea Muscle spasm GERD (gastroesophageal reflux disease) Family History Family History Father Diabetes Mother Depression Hypertension Maternal Aunt Uterine cancer Family/Other Mental health disorder Substance use disorder Surgical History Surgical History (Updated 06/10/24 @ 08:35 by Malgorzata Brambila, RN) History of esophagogastroduodenoscopy (EGD) History of hemorrhoidectomy History of tubal ligation History of section History of appendectomy History of cholecystectomy Social History Social History Housing: Apartment Are you a primary health care facility administrator to a significant other at home: No Do you presently have visiting nurse or other home services: No Alcohol intake: former Patient Tobacco Use Status: Current everyday Tobacco user Tobacco use type: Cigarette Cigarettes Per Day: 10 Years Smoked: 33 e-Cigarette/Vaping Use: Never Used Second Hand Smoke Exposure: No Use of substances other than those prescribed or required for medical reasons: Yes Substance Use Frequency: Daily Have you been hit, kicked, punched, or otherwise hurt by someone within the past year? If so, by whom?: No Are you DNR?: No Advance Directives: No Advance Directives Information Provided: Yes Advance Directives on File: No Recently lost weight without trying: No Eating poorly because of decreased appetite: No Nutrition Risks: No Nutritional Risk Patient : No (irregular menses) FDLMP: 03/2024 : No service: No Current occupational status: unemployed Cognitive needs: No Hearing needs: No Vision needs: No Meds Allergies Allergy/AdvReac Type Severity Reaction Status Date / Time ciprofloxacin [From Cipro] Allergy Severe throat Verified 06/10/24 08:35 swelling, rash morphine [MORPHINE] Allergy Severe anaphylaxi Verified 06/10/24 08:35 s ondansetron Allergy Severe Hives Verified 06/10/24 08:35 [From ZOFRAN ( HYDROCHLORIDE)] acetaminophen [From FIORICET] Allergy Intermediate abdominal Verified 06/10/24 08:35 pain butalbital [From FIORICET] Allergy Intermediate Abdominal Verified 06/10/24 08:35 Pain caffeine [From FIORICET] Allergy Intermediate Abdominal Verified 06/10/24 08:35 Pain ibuprofen [From MOTRIN] Allergy Intermediate Abdominal Verified 06/10/24 08:35 Pain ketorolac [From TORADOL] Allergy Intermediate Abdominal Verified 06/10/24 08:35 Pain naproxen [NAPROXEN] Allergy Intermediate Abdominal Verified 06/10/24 08:35 Pain nicotine [From NICODERM CQ] Allergy Intermediate MIGRAINE, Verified 06/10/24 08:35 rash, headache tramadol Allergy Intermediate abdominal Verified 06/10/24 08:35 pain, chest pain sumatriptan [From Imitrex] AdvReac Severe chest pain Verified 06/10/24 08:35 Home Medications ?Medication ?Instructions ?Recorded ?Confirmed ?Last Taken ?Type clonidine HCl 0.2 mg tablet 0.2 mg PO TID 01/02/21 06/10/24 Unknown History prazosin 1 mg capsule 1 mg PO BEDTIME 01/02/21 06/10/24 Unknown History mirtazapine 45 mg tablet 45 mg PO BEDTIME 05/04/24 06/10/24 Unknown History quetiapine 25 mg tablet (Seroquel) 25 mg PO BEDTIME 05/04/24 06/10/24 Unknown History Exam Height,Weight and Vital Signs: Height 4 ft 11 in Weight 67.132 kg Last Vital Signs Pulse 76 06/04/24 11:23 Resp 20 06/04/24 11:23 BP 98/51 L 06/04/24 11:23 Pulse Ox 97 06/04/24 11:23 O2 Del Method Room Air 06/04/24 11:23 Pertinent Lab Results Pertinent Lab Results: Laboratory Tests 01/27/24 04/22/24 08:31 14:34 WBC 8.9 Hgb 11.4 L Hct 34.9 L Plt Count 462 H Sodium 140 Potassium 3.7 Chloride 105 Carbon Dioxide 29 BUN 9 Creatinine 0.70 Narrative Narrative: EKG 08/2023 normal sinus rhythm, no acute ST or T-wave abnormalities, rate 88, QTC 462 milliseconds ECHO 2022 Conclusions: - 1. Technically limited study despite use of contrast agent 2. Normal LV ejection fraction 55-60% with impaired relaxation filling pattern with grade 1 diastolic dysfunction 3. Limited visualization cardiac valve with normal cardiac valvular Doppler Assessment and Plan Assessment Anesthesia Assessment: Chart Reviewed Documented by User: Malgorzata Sanchez DO 06/10/24 09:36 PMFSH Past Medical History Medical History (Updated 06/10/24 @ 08:34 by Malgorzata Brambila, RN) Migraine Seizure Atypical chest pain Declined smoking cessation Hot flashes Chalazion of right eyelid Annual physical exam COPD (chronic obstructive pulmonary disease) Depression Blurry vision Overweight Nausea Muscle spasm GERD (gastroesophageal reflux disease) Family History Family History Father Diabetes Mother Depression Hypertension Maternal Aunt Uterine cancer Family/Other Mental health disorder Substance use disorder Family history of problems with anesthesia: No Surgical History Surgical History (Updated 06/10/24 @ 08:35 by Malgorzata Brambila RN) History of esophagogastroduodenoscopy (EGD) History of hemorrhoidectomy History of tubal ligation History of section History of appendectomy History of cholecystectomy History of Problems with Anesthesia: No Social History Social History Housing: Apartment Are you a primary health care facility administrator to a significant other at home: No Do you presently have visiting nurse or other home services: No Alcohol intake: former Patient Tobacco Use Status: Current everyday Tobacco user Tobacco use type: Cigarette Cigarettes Per Day: 10 Years Smoked: 33 e-Cigarette/Vaping Use: Never Used Second Hand Smoke Exposure: No Use of substances other than those prescribed or required for medical reasons: Yes Substance Use Frequency: Daily Have you been hit, kicked, punched, or otherwise hurt by someone within the past year? If so, by whom?: No Are you DNR?: No Advance Directives: No Advance Directives Information Provided: Yes Advance Directives on File: No Recently lost weight without trying: No Eating poorly because of decreased appetite: No Nutrition Risks: No Nutritional Risk Patient : No (irregular menses) FDLMP: 03/2024 : No service: No Current occupational status: unemployed Cognitive needs: No Hearing needs: No Vision needs: No Meds Allergies Allergy/AdvReac Type Severity Reaction Status Date / Time ciprofloxacin [From Cipro] Allergy Severe throat Verified 06/10/24 08:35 swelling, rash morphine [MORPHINE] Allergy Severe anaphylaxi Verified 06/10/24 08:35 s ondansetron Allergy Severe Hives Verified 06/10/24 08:35 [From ZOFRAN ( HYDROCHLORIDE)] acetaminophen [From FIORICET] Allergy Intermediate abdominal Verified 06/10/24 08:35 pain butalbital [From FIORICET] Allergy Intermediate Abdominal Verified 06/10/24 08:35 Pain caffeine [From FIORICET] Allergy Intermediate Abdominal Verified 06/10/24 08:35 Pain ibuprofen [From MOTRIN] Allergy Intermediate Abdominal Verified 06/10/24 08:35 Pain ketorolac [From TORADOL] Allergy Intermediate Abdominal Verified 06/10/24 08:35 Pain naproxen [NAPROXEN] Allergy Intermediate Abdominal Verified 06/10/24 08:35 Pain nicotine [From NICODERM CQ] Allergy Intermediate MIGRAINE, Verified 06/10/24 08:35 rash, headache tramadol Allergy Intermediate abdominal Verified 06/10/24 08:35 pain, chest pain sumatriptan [From Imitrex] AdvReac Severe chest pain Verified 06/10/24 08:35 Home Medications ?Medication ?Instructions ?Recorded ?Confirmed ?Last Taken ?Type clonidine HCl 0.2 mg tablet 0.2 mg PO TID 01/02/21 06/10/24 Unknown History prazosin 1 mg capsule 1 mg PO BEDTIME 01/02/21 06/10/24 Unknown History mirtazapine 45 mg tablet 45 mg PO BEDTIME 05/04/24 06/10/24 Unknown History quetiapine 25 mg tablet (Seroquel) 25 mg PO BEDTIME 05/04/24 06/10/24 Unknown History Exam Exam Date and Time: June 10, 2024 09 Height,Weight and Vital Signs: Height 4 ft 11 in Weight 67.132 kg Last Vital Signs Pulse 76 06/04/24 11:23 Resp 20 06/04/24 11:23 BP 98/51 L 06/04/24 11:23 Pulse Ox 97 06/04/24 11:23 O2 Del Method Room Air 06/04/24 11:23 Vital Signs Pulse Rate 76 06/04/24 11:23 Respiratory Rate 20 06/04/24 11:23 Blood Pressure 98/51 L 06/04/24 11:23 Pulse Oximetry 97 06/04/24 11:23 Oxygen Delivery Method Room Air 06/04/24 11:23 Temperature 97.0 F 06/10/24 08:41 Pulse Rate 75 06/10/24 08:41 Respiratory Rate 15 06/10/24 08:41 Blood Pressure 110/48 L 06/10/24 08:41 Pulse Oximetry 96 06/10/24 08:41 Oxygen Delivery Method Room Air 06/10/24 08:41 Airway Mallampati Class: I TM Dist: >3cm Neck ROM: Full Partial: Upper Loose/Missing/Broken Teeth: No (patient denies any other loose or broken teeth) Heart: S1S2 Lungs: Diminished bilaterally Assessment and Plan Assessment Anesthesia Assessment: Anesthesia Plan Discussed and Chart Reviewed Final Anesthetic Review Family History of Problems with Anesthesia: No History of Problems with Anesthesia: No NPO: Yes ASA Class: II Final Preanesthetic Review: No Changes in Pt Med Stat, Meds/Allgs Chart Reviewed, Consent Obtained/Reviewed and Anes Risks/Benef Reviewed Patient Risk: Low Procedure Risk: Low Anesthetic Plan Anesthetic Plan: GA and Agree w/ Assess. and Plan Disposition: Standard PACU
--- NOTE | 2024-06-10 09:57 | MHC.SHP ---
Pre-Procedural Eval Section A - 24 Hr Update-Section A only Date of Service: 06/10/24 The patient is an INPATIENT: No Changes since office visit: No Cold of Flu in the past 2 weeks, No New Medical Problems, No Changes in Medication and No Patient answered all questions The patient has been examined within 24 hours of the surgical procedure. The History & Physical has been completed within 30 days and I have reviewed it.: Yes Section B - Complete if H&P > 30 days Chief Complaint: Anal fissure,hemorrhoids Allergies: Allergies Allergy/AdvReac Type Severity Reaction Status Date / Time ciprofloxacin [From Cipro] Allergy Severe throat Verified 06/10/24 08:35 swelling, rash morphine [MORPHINE] Allergy Severe anaphylaxi Verified 06/10/24 08:35 s ondansetron Allergy Severe Hives Verified 06/10/24 08:35 [From ZOFRAN ( HYDROCHLORIDE)] acetaminophen [From FIORICET] Allergy Intermediate abdominal Verified 06/10/24 08:35 pain butalbital [From FIORICET] Allergy Intermediate Abdominal Verified 06/10/24 08:35 Pain caffeine [From FIORICET] Allergy Intermediate Abdominal Verified 06/10/24 08:35 Pain ibuprofen [From MOTRIN] Allergy Intermediate Abdominal Verified 06/10/24 08:35 Pain ketorolac [From TORADOL] Allergy Intermediate Abdominal Verified 06/10/24 08:35 Pain naproxen [NAPROXEN] Allergy Intermediate Abdominal Verified 06/10/24 08:35 Pain nicotine [From NICODERM CQ] Allergy Intermediate MIGRAINE, Verified 06/10/24 08:35 rash, headache tramadol Allergy Intermediate abdominal Verified 06/10/24 08:35 pain, chest pain sumatriptan [From Imitrex] AdvReac Severe chest pain Verified 06/10/24 08:35 Review of Systems Sugical H&P ROS: Negative: Constitution, Cardiovascular, Respiratory, Neurological, Psychiatric, Hem-Onc, Allergic/Immunologic, Gastrointestinal, Genitourinary, Musculoskeletal, Integumentary, Endocrine and Eyes/Ears/Nose/Throat Exam Surgical H&P Exam: Normal: HEENT, Normal: Heart, Normal: Lungs, Normal: Extremities, Normal: Abdomen, Normal: Skin and Normal: Neurological Plan I have reviewed the history and physical and performed a pertinent physical examination on my patient. No changes have occurred unless specified. Time Spent With Patient Time: Total time managing care of this patient today ____ minutes.
--- NOTE | 2024-06-10 10:44 | W.PM.OPN ---
Operative Note Operative Note Date of Service: 06/10/24 Narrative: Preoperative diagnosis: [] Symptomatic internal and external hemorrhoids Postop diagnosis: [] The same Procedure [] hemorrhoidectomy Surgeon: [] [employer] Professor: [] Type of Anesthesia: [] LMA Indication for surgery: [] Symptomatic hemorrhoids Findings: [] Patient brought to the operating room, placed on operative table in supine position, after adequate level of general anesthesia was induced, patient was placed in lithotomy position. Anorectal area is prepped and draped in usual sterile fashion. Patient had a very large internal and external hemorrhoid at the 4 o'clock position which were grasped and double fired ligature device transected. Patient was a smaller 1 at the 11 o'clock position also similarly transected. Wounds were irrigated, secured hemostasis, infiltrated with 0.5% Marcaine and a topical xylocaine impregnated Gelfoam placed followed by a dressing. Sponge, needle, and instrument counts reported correct. Patient tolerated the procedure well and emerged from anesthesia stable condition. EBL minimal
[2024-06-10 10:47] VITALS: BP 110/63; PULSE 77; RESP 18; TEMP 36.2; O2SAT 96
[2024-06-10 10:50] VITALS: BP 118/46; PULSE 73; RESP 16; O2SAT 96
[2024-06-10 10:55] VITALS: BP 110/57; PULSE 72; RESP 16; O2SAT 96
[2024-06-10 11:00] VITALS: BP 124/71; PULSE 72; RESP 16; O2SAT 95
[2024-06-10 11:15] VITALS: BP 117/64; PULSE 65; RESP 16; TEMP 36.1; O2SAT 97
--- NOTE | 2024-06-10 13:17 | PC.NURSE ---
Patient called stating that post op pain medication sent to [facility] did not go through as they don't have that medication. Lynne Palencia made aware. Med resent to [facility] on [address] per patient request. Return call to patient, patient aware.
== END 2024-06-10 11:56 | disposition home or self-care (01) ==
PROVIDERS: PCP Internal Medicine; Visit Provider Surgery
PROC: (CPT 46255; principal; 2024-06-10 09:40)
DX: K64.8 Other hemorrhoids (principal); K64.4 Residual hemorrhoidal skin tags; K60.2 Anal fissure, unspecified; K59.00 Constipation, unspecified; J44.9 Chronic obstructive pulmonary disease, unspecified; R07.89 Other chest pain; F32.A Depression, unspecified; H53.8 Other visual disturbances; E66.3 Overweight; Z68.30 Body mass index [BMI] 30.0-30.9, adult; Z79.51 Long term (current) use of inhaled steroids; Z79.899 Other long term (current) drug therapy; Z88.1 Allergy status to other antibiotic agents; Z88.8 Allergy status to other drugs, medicaments and biological substances; Z88.6 Allergy status to analgesic agent; F17.210 Nicotine dependence, cigarettes, uncomplicated; Z98.890 Other specified postprocedural states; Z56.0 Unemployment, unspecified
CPT/HCPCS: 46255; 88304; J0131; J0690; J1100; J2250; J2704; J2795; J3010

== ENCOUNTER → 2024-06-10 08:21 | Outpatient (BNV) | payer OTHER, SELFPAY | PROVIDERS: PCP Internal Medicine; Visit Provider Surgery | DX: K64.8 Other hemorrhoids (principal) | CPT/HCPCS: 46260 ==

== ENCOUNTER 2024-10-20 15:32 | Emergency (ER) | payer OTHER, SELFPAY ==
--- NOTE | 2024-10-20 15:34 | ECG_ITS ---
Test Reason : cp Blood Pressure : / mmHG Vent. Rate : 078 BPM Atrial Rate : 078 BPM P-R Int : 160 ms QRS Dur : 078 ms QT Int : 380 ms P-R-T Axes : 054 019 016 degrees QTc Int : 433 ms Normal sinus rhythm Normal ECG When compared with ECG of 29-MAR-2021 09:41, Nonspecific T wave abnormality now evident in Anterior leads Referred By: Gissel Uriarte Electronically Signed By:HERNANDEZ SANTOS MD
[2024-10-20 15:50] VITALS: BP 120/67; PULSE 82; RESP 19; TEMP 36.3; O2SAT 99; BMI 31.3
--- NOTE | 2024-10-20 15:50 | ED.GENADULT ---
HPI - General Adult General Chief complaint: Nausea/Vomiting/Diarrhea Stated complaint: bm-wolrdocj-pajhlsoo-vomiting Time Seen by Provider: 10/20/24 16:53 History of Present Illness ED Provider: Shabana ALICEA narrative: The patient is a 49-year-old woman who says that she has been feeling unwell since about 15:00 yesterday afternoon. She developed abdominal discomfort as well as nausea, vomiting, and diarrhea. She has had multiple episodes of vomiting and diarrhea. She continues to have abdominal discomfort. She says that about 4 months ago she had a similar episode when she was in [place]. The patient says that she has fairly frequent episodes of vomiting and diarrhea. She says that in 2011 she had a minor tear in her esophagus that was associated with bleeding and required blood transfusions at [facility]. She says that it is not uncommon for her to get episodes of vomiting and diarrhea every every few months. Today's episode is similar to previous episodes. She says that she has a history of an appendectomy and a cholecystectomy. Related Data Home Medications ?Medication ?Instructions ?Recorded ?Confirmed clonidine HCl 0.2 mg tablet 0.2 mg PO TID 01/02/21 06/10/24 prazosin 1 mg capsule 1 mg PO BEDTIME 01/02/21 06/10/24 mirtazapine 45 mg tablet 45 mg PO BEDTIME 05/04/24 06/10/24 quetiapine 25 mg tablet (Seroquel) 25 mg PO BEDTIME 05/04/24 06/10/24 Previous Rx's ?Medication ?Instructions ?Recorded cyclobenzaprine 10 mg tablet 10 mg PO Q8H PRN muscle spasm 90 10/20/23 days #270 tabs promethazine 25 mg tablet 25 mg PO BID PRN for 02/16/24 nausea/vomiting #60 tabs ipratropium 0.5 mg-albuterol 3 mg 3 ml PO Q4-6H PRN for wheezing 02/17/24 (2.5 mg base)/3 mL nebulization #180 mL soln pantoprazole 40 mg tablet,delayed 40 mg PO DAILY 90 days #90 tabs 03/18/24 release hydrocortisone 2.5 % topical cream 1 appl LA BID-QID PRN hemorrhoids 05/04/24 with perineal applicator #30 grams Ventolin HFA 90 mcg/actuation 2 puff inhalation Q4-6H PRN 05/25/24 aerosol inhaler (albuterol sulfate) shortness of breath or wheezing 30 days #1 ea hydrocodone 5 mg-acetaminophen 300 1 tab PO Q4-6H PRN pain (scale 06/10/24 mg tablet score 7-10) #30 tabs tiotropium bromide 2.5 2 puff inhalation QAM 30 days #4 10/13/24 mcg/actuation mist for inhalation grams (Spiriva Respimat) dicyclomine 20 mg tablet 20 mg PO TID PRN abdominal 10/20/24 discomfort #60 tabs promethazine 25 mg rectal 25 mg LA Q6H PRN nausea and 10/20/24 suppository vomiting #12 ea Allergies Allergy/AdvReac Type Severity Reaction Status Date / Time ciprofloxacin [From Cipro] Allergy Severe throat Verified 10/20/24 15:53 swelling, rash morphine [MORPHINE] Allergy Severe anaphylaxi Verified 10/20/24 15:53 s ondansetron Allergy Severe Hives Verified 10/20/24 15:53 [From ZOFRAN ( HYDROCHLORIDE)] acetaminophen [From FIORICET] Allergy Intermediate abdominal Verified 10/20/24 15:53 pain butalbital [From FIORICET] Allergy Intermediate Abdominal Verified 10/20/24 15:53 Pain caffeine [From FIORICET] Allergy Intermediate Abdominal Verified 10/20/24 15:53 Pain ibuprofen [From MOTRIN] Allergy Intermediate Abdominal Verified 10/20/24 15:53 Pain ketorolac [From TORADOL] Allergy Intermediate Abdominal Verified 10/20/24 15:53 Pain naproxen [NAPROXEN] Allergy Intermediate Abdominal Verified 10/20/24 15:53 Pain nicotine [From NICODERM CQ] Allergy Intermediate MIGRAINE, Verified 10/20/24 15:53 rash, headache tramadol Allergy Intermediate abdominal Verified 10/20/24 15:53 pain, chest pain sumatriptan [From Imitrex] AdvReac Severe chest pain Verified 10/20/24 15:53 Review of Systems Review of Systems: Yes all other systems are reviewed and are negative [facility] Past Medical History Medical History (Updated 10/21/24 @ 00:02 by Background Nevin) Migraine Seizure Atypical chest pain Declined smoking cessation Hot flashes Chalazion of right eyelid Annual physical exam COPD (chronic obstructive pulmonary disease) Depression Blurry vision Overweight Nausea Muscle spasm GERD (gastroesophageal reflux disease) Surgical History (Updated 06/17/24 @ 10:18 by THEODORA Funez) History of esophagogastroduodenoscopy (EGD) History of hemorrhoidectomy (06/10/24) History of tubal ligation History of section History of appendectomy History of cholecystectomy Family History Family History Father Diabetes Mother Depression Hypertension Maternal Aunt Uterine cancer Family/Other Mental health disorder Substance use disorder Social History Social History Housing: Apartment Are you a primary career portals teacher to a significant other at home: No Do you presently have visiting nurse or other home services: No Alcohol intake: former Patient Tobacco Use Status: Current everyday Tobacco user Tobacco use type: Cigarette Cigarettes Per Day: 10 Years Smoked: 33 Smoked in Last 30 Days: Yes e-Cigarette/Vaping Use: Never Used Second Hand Smoke Exposure: No Use of substances other than those prescribed or required for medical reasons: Yes Substance Use Type: Marijuana Substance Use Frequency: Daily Advance Directives: No Advance Directives Information Provided: Yes Do you have a plan to hurt others: No Plan Patient : Yes service: No Current occupational status: unemployed Cognitive needs: No Hearing needs: No Vision needs: No Physical Exam ED Vital Signs: Vital Signs - 24 hr 10/20/24 15:50 10/20/24 17:02 10/20/24 18:53 Temperature 97.4 F 97.9 F 98.2 F Pulse Rate 82 83 84 Respiratory Rate 19 16 15 Blood Pressure 120/67 131/64 156/92 H Pulse Oximetry 99 98 98 Oxygen Delivery Method Room Air Room Air Room Air 10/20/24 20:29 10/20/24 22:57 Temperature 98.1 F 98.1 F Pulse Rate 78 78 Respiratory Rate 18 18 Blood Pressure 138/71 138/71 Pulse Oximetry 100 100 Oxygen Delivery Method Room Air Room Air BMI result Body Mass Index 31.3 Const Other: The patient is awake, alert, pleasant, cooperative. She does not appear in overt distress. HENMT Other: Face is symmetrical. Mucous membranes moist. Eyes Other: Pupils are round equal, conjunctivae are clear Neck Neck: Yes full ROM Resp Effort & Inspection: normal respiratory effort Auscultation: clear to auscultation bilaterally Cardio Rate: regular rate Rhythm: regular rhythm Heart sounds: S1 normal heart sound present and S2 normal heart sound present GI Other: Mild generalized tenderness. Skin Other: Skin is dry and unremarkable Neuro Other: The patient is awake and alert with a normal mental status. Cranial nerves are grossly intact. She moves her extremities normally and appropriately. Extrem Other: No peripheral edema Course Course Course Narrative: This is a rapid medical exam performed by Phuong Uriarte NP: Additional HPI, ROS, PE not included below will be deferred to primary provider. Patient is a 49-year-old female with history of asthma/COPD overlap syndrome, seizures, migraines, GERD, depression presenting with complaint of nausea, vomiting and diarrhea since last night. Also complains of headache and chest pain which began today. Plan: EKG, labs, viral serology Medications Administered Discontinued Medications Generic Name Dose Route Start Last Admin Trade Name Freq PRN Reason Stop Dose Admin Dicyclomine HCl 10 mg 10/20/24 19:12 10/20/24 20:25 Dicyclomine Hcl 10 Mg Capsule PO 10/20/24 19:13 10 mg ONCE ONE Administration Diphenhydramine HCl 25 mg 10/20/24 17:43 10/20/24 17:54 Diphenhydramine Hcl 50 Mg/Ml Vial IVPUSH 10/20/24 17:44 25 mg ONCE ONE Administration Sodium Chloride 1,000 mls @ 999 mls/hr 10/20/24 17:15 10/20/24 19:00 Ns IV 10/20/24 18:15 Infused .Q1H1M DARLING Infusion Sodium Chloride 1,000 mls @ 999 mls/hr 10/20/24 21:15 10/20/24 21:36 Ns IV 10/20/24 22:15 999 mls/hr .Q1H1M DARLING Administration Metoclopramide HCl 10 mg 10/20/24 17:09 10/20/24 17:21 Metoclopramide Hcl 10 Mg/2 Ml Vial IVPUSH 10/20/24 17:10 10 mg ONCE ONE Administration Promethazine HCl 25 mg 10/20/24 19:12 10/20/24 20:25 Promethazine Hcl 25 Mg Tablet PO 10/20/24 19:13 25 mg ONCE ONE Administration Promethazine HCl 25 mg 10/20/24 21:04 10/20/24 21:36 Promethazine Hcl 25 Mg/Ml Vial IM 10/20/24 21:05 25 mg ONCE ONE Administration Medical Decision Making Medical Decision Making [facility] Narrative: The patient is a 49-year-old woman who presents with abdominal pain, nausea, vomiting, and diarrhea. She has a history of an appendectomy and a cholecystectomy. The patient describes having had similar episodes in the past, possibly having episodes as often as every 4 or 5 months over a few years. [place] [address] but a CRP of only 1. I felt that her abdominal exam did not suggest a surgical abdomen. Given that the patient describes having had multiple similar episodes in the past the patient was treated symptomatically with IV metoclopramide and diphenhydramine. At 1st she seemed to improve. She requested dicyclomine and promethazine orally. These were given but she subsequently vomited them. She was then given 25 mg of IM promethazine after which point she felt much better and was comfortable being discharged. She requested prescriptions for dicyclomine and for promethazine suppositories. Lab Data 10/20/24 16:19 10/20/24 16:19 Labs: Lab Results 10/20/24 10/20/24 10/20/24 Range/Units 16:19 16:20 20:31 WBC 17.9 H (4.8-10.8) X10*3/uL RBC 4.56 (4.20-5.50) X10*6/uL Hgb 12.8 (12.0-16.0) g/dl Hct 37.7 (37.0-47.0) % MCV 82.7 (80.0-98.0) fL MCH 28.1 (27.0-33.0) pg MCHC 34.0 (31.0-35.0) g/dl RDW 14.8 (11.0-16.0) % Plt Count 439 H (160-400) X10*3/uL MPV 9.0 L (9.4-12.3) fL Immature Gran % (Auto) 0.5 H (0.0-0.4) % Neut % (Auto) 89.5 H (45-73) % Lymph % (Auto) 6.2 L (20-40) % Bowie % (Auto) 3.5 (2-11) % Eos % (Auto) 0.1 (0-4) % Baso % (Auto) 0.2 (0-2) % Lymph # (Auto) 1.1 L (1.2-4.9) X10*3/uL Bowie # (Auto) 0.6 (0.1-1.2) X10*3/uL Eos # (Auto) 0.0 (0.0-0.4) X10*3/uL Baso # (Auto) 0.0 (0.0-0.2) X10*3/uL Abs Immat Gran (auto) 0.09 H (0.00-0.03) X10*3/uL Absolute Neuts (auto) 16.0 H (2.0-8.3) x10*3/uL Absolute Nucleated RBC 0.000 (0.0-0.012) X10*3/uL Nucleated RBC % (auto) 0.0 (0.0-0.2) /100WBC PT 10.9 (10.9-12.4) SEC INR 0.9 (0.9-1.1) Sodium 140 (135-145) mmol/L Potassium 4.1 (3.3-5.1) mmol/L Chloride 106 (96-108) mmol/L Carbon Dioxide 25 (22-29) mmol/L Anion Gap 13 (12-20) BUN 11 (9-16) mg/dL Creatinine 0.64 (0.5-1.4) mg/dL Estim Creat Clear Calc 91.6 Estimated GFR > 60 Random Glucose 119 H (60-115) mg/dL Calcium 9.4 (8.4-10.2) mg/dL Magnesium 2.0 (1.6-2.6) mg/dL Total Bilirubin 0.3 (0.0-1.0) mg/dL AST 20 (5-31) U/L ALT 10 (0-31) U/L Alkaline Phosphatase 103 (39-117) U/L Troponin I High Sens < 2.7 (<3.5-17.0) ng/L C-Reactive Protein 1.02 H (< or = 0.50) mg/dL Total Protein 7.5 (6.5-8.0) g/dL Albumin 4.2 (3.5-5.0) g/dL Beta HCG, Quant < 2 mIU/mL Urine Color Yellow Urine Appearance Clear Urine pH 7.5 (5.0-9.0) Ur Specific [place] 1.015 (1.005-1.025) Urine Protein Negative (Neg-Trace) mg/dL Urine Glucose (UA) Negative (Negative) mg/dL Urine Ketones 80 (Negative) mg/dL Urine Blood Negative (Negative) Urine Nitrite Negative (Negative) Ur Leukocyte Esterase Negative (Negative) Influenza Type A (PCR) NEGATIVE (Negative) Influenza Type B (PCR) NEGATIVE (Negative) RSV RNA Qual (PCR) NEGATIVE (Negative) SARS-CoV-2 RNA (RT-PCR) NEGATIVE (Negative) Discharge Plan Discharge Clinical Impression: Nausea, vomiting, and diarrhea Patient Disposition: Home, Self-Care Additional Instructions: Please rest and take it easy today. Try to drink clear fluids. I have sent a prescription for dicyclomine tablets to your pharmacy which you may use for abdominal discomfort as needed. I have also sent a prescription for promethazine suppositories which you may use as needed for nausea. Please plan on following up with your regular primary care provider soon. Return to the emergency room if you feel significantly worse. Prescriptions: New dicyclomine 20 mg tablet 20 mg PO TID PRN (Reason: abdominal discomfort) Qty: 60 0RF promethazine 25 mg suppository 25 mg LA Q6H PRN (Reason: nausea and vomiting) Qty: 12 0RF No Action cyclobenzaprine 10 mg tablet 10 mg PO Q8H PRN (Reason: muscle spasm) 90 Days Qty: 270 3RF promethazine 25 mg tablet 25 mg PO BID PRN (Reason: for nausea/vomiting) Qty: 60 3RF ipratropium-albuterol 0.5 mg-3 mg(2.5 mg base)/3 mL solution for nebulization 3 ml PO Q4-6H PRN (Reason: for wheezing) Qty: 180 6RF pantoprazole 40 mg tablet,delayed release (DR/EC) 40 mg PO DAILY 90 Days Qty: 90 2RF albuterol sulfate [Ventolin HFA] 90 mcg/actuation HFA aerosol inhaler 2 puff inhalation Q4-6H PRN (Reason: shortness of breath or wheezing) 30 Days Qty: 1 6RF Spiriva Respimat 2.5 mcg/actuation mist 2 puff inhalation QAM 30 Days Qty: 4 0RF hydrocodone-acetaminophen 5-300 mg tablet 1 tab PO Q4-6H PRN (Reason: pain (scale score 7-10)) Qty: 30 0RF Rx Instructions: Partial Fill upon patient request. clonidine HCl 0.2 mg tablet 0.2 mg PO TID prazosin 1 mg capsule 1 mg PO BEDTIME quetiapine [Seroquel] 25 mg tablet 25 mg PO BEDTIME mirtazapine 45 mg tablet 45 mg PO BEDTIME hydrocortisone 2.5 % cream with perineal applicator 1 appl LA BID-QID PRN (Reason: hemorrhoids) Qty: 30 0RF Referrals: Dayana Soria MD [Primary Care Provider] - (Abdominal discomfort, nausea and vomiting) Interventions: ED Discharge Assessment Last Done: 10/20/24 22:57 Discharge Date/Time: 10/20/24 22:57 Print Language: Malagasy
[2024-10-20 16:28] LABS: MANUAL DIFF FLAG NO
[2024-10-20 16:29] LABS: Basophils Percent Auto 0.2 % (0-2); Eosinophils Percent Auto 0.1 % (0-4); Hematocrit 37.7 % (37.0-47.0); Hemoglobin 12.8 g/dl (12.0-16.0); Imm Gran Abs Auto 0.09 X10*3/uL (0.00-0.03); Imm Gran Pct Auto 0.5 % (0.0-0.4); Lymphocytes Absolute Auto 1.1 X10*3/uL (1.2-4.9); Lymphocytes Percent Auto 6.2 % (20-40); Mean Corpuscular Hemoglobin 28.1 pg (27.0-33.0); Mean Corpuscular Volume 82.7 fL (80.0-98.0); Monocytes Absolute Auto 0.6 X10*3/uL (0.1-1.2); Monocytes Percent Auto 3.5 % (2-11); Neutrophils Percent Auto 89.5 % (45-73); Platelet Count 439 X10*3/uL (160-400); Red Blood Count 4.56 X10*6/uL (4.20-5.50); Red Cell Distribution Width 14.8 % (11.0-16.0); White Blood Count 17.9 X10*3/uL (4.8-10.8)
[2024-10-20 16:39] LABS: INTERNATIONAL NORM RATIO 0.9 (0.9-1.1); Prothrombin Time 10.9 SEC (10.9-12.4)
[2024-10-20 16:57] LABS: Troponin-I High Sensitivity < 2.7 ng/L (<3.5-17.0)
[2024-10-20 17:02] VITALS: BP 131/64; PULSE 83; RESP 16; TEMP 36.6; O2SAT 98
[2024-10-20 17:04] LABS: Alanine Aminotransferase 10 U/L (0-31); Albumin Level 4.2 g/dL (3.5-5.0); Anion Gap 13 (12-20); Aspartate Amino Transferase 20 U/L (5-31); Bilirubin Total 0.3 mg/dL (0.0-1.0); Blood Urea Nitrogen 11 mg/dL (9-16); Calcium 9.4 mg/dL (8.4-10.2); Carbon Dioxide 25 mmol/L (22-29); Chloride 106 mmol/L (96-108); Creatinine Clr Calc Pharmacy 91.6; Estimated Glomerular Filt Rate > 60; Glucose Random 119 mg/dL (60-115); HCG Quantitative < 2 mIU/mL; Potassium 4.1 mmol/L (3.3-5.1); Sodium 140 mmol/L (135-145); Total Protein 7.5 g/dL (6.5-8.0)
--- NOTE | 2024-10-20 17:06 | PC.NURSE ---
Pt comes to ED today with c/o abd pain. Pt reports pain is 10/10 with HAs and chest pain. Pt reports n/v/d starting last night. VSS, A&Ox3, afebrile. Skin is warm and dry Breaths and speech are slow, even, and unlabored.
[2024-10-20 17:08] LABS: Influenza A PCR NEGATIVE (Negative); Influenza B PCR NEGATIVE (Negative); Resp Syncy Virus RNA Qual PCR NEGATIVE (Negative); SARS COV2 PCR INHOUSE NEGATIVE (Negative)
[2024-10-20] MEDS: 0.9 % Sodium Chloride 1,000 ML 999 ML IV ×2 (17:21→21:36)
[2024-10-20] MEDS: Metoclopramide HCl 10 MG/2 ML VIAL IVPUSH (17:21)
[2024-10-20 17:36] LABS: Alkaline Phosphatase 103 U/L (39-117); C Reactive Protein 1.02 mg/dL (< or = 0.50)
[2024-10-20] MEDS: diphenhydrAMINE HCL 50 MG/ML VIAL 25 MG IVPUSH (17:54)
[2024-10-20 18:53] VITALS: BP 156/92; PULSE 84; RESP 15; TEMP 36.8; O2SAT 98
[2024-10-20] MEDS: Promethazine HCL 25 MG TABLET PO (20:25)
[2024-10-20] MEDS: Dicyclomine HCl 10 MG CAPSULE PO (20:25)
[2024-10-20 20:29] VITALS: BP 138/71; PULSE 78; RESP 18; TEMP 36.7; O2SAT 100
[2024-10-20 20:38] LABS: Appearance Urine Clear; Color Urine Yellow; Glucose Urine UA Negative (Negative); Leukocyte Esterase Urine Negative (Negative); Nitrite Urine Negative (Negative); PH 7.5 (5.0-9.0); Specific Gravity - Urine 1.015 (1.005-1.025); Urine Blood Negative (Negative); Urine Ketones 80 mg/dL (Negative); Urine Protein Negative (Neg-Trace)
[2024-10-20] MEDS: Promethazine HCL 25 MG/ML VIAL IM (21:36)
--- NOTE | 2024-10-20 21:41 | PC.NURSE ---
pt medicated as per jan. call ramirez within reach plan of care ongoing
[2024-10-20 22:57] VITALS: BP 138/71; PULSE 78; RESP 18; TEMP 36.7; O2SAT 100
== END 2024-10-20 22:57 | disposition home or self-care (01) ==
PROVIDERS: Registered Nurse Emergency; Emergency Provider Emergency Medicine; PCP Internal Medicine
DX: R11.2 Nausea with vomiting, unspecified (principal); R19.7 Diarrhea, unspecified; Z03.818 Encounter for observation for suspected exposure to other biological agents ruled out; J45.909 Unspecified asthma, uncomplicated
CPT/HCPCS: 0241U; 80053; 81003; 83735; 84484; 84702; 85025; 85610; 86140; 93005; 96361; 96372; 96374; 96375; 99284; 99285; J1200; J2550; J2765

== ENCOUNTER → 2024-10-20 15:34 | Outpatient (BNV) | payer OTHER, SELFPAY | PROVIDERS: Emergency Provider Emergency Medicine; PCP Internal Medicine; Visit Provider Internal Medicine Cardiovascular Disease | DX: R07.9 Chest pain, unspecified (principal) | CPT/HCPCS: 93010 ==

== ENCOUNTER 2025-01-12 14:11 | Outpatient (AMB) | payer OTHER, SELFPAY ==
--- NOTE | 2025-01-12 14:28 | A.OFFVIS_ITS ---
Vital Signs 01/12/25 14:29 Height 4 ft 11 in Weight 159 lb 13.362 oz BMI 32.3 BP 108/60 Blood Pressure Location Rt brachial Position Sitting Pulse 95 Pulse Source Doppler Pulse Oximetry (%) 98 Oxygen Delivery Method Room Air Intake Visit Reasons: asthma Semiconductor Processor Required: Yes Semiconductor Processor Name: Carol Dubois C.L.Maida Allergies ciprofloxacin [From Cipro] Allergy (Severe, Verified 10/20/24 15:53) throat swelling, rash morphine [MORPHINE] Allergy (Severe, Verified 10/20/24 15:53) anaphylaxis ondansetron [From ZOFRAN ( HYDROCHLORIDE)] Allergy (Severe, Verified 10/20/24 15:53) Hives acetaminophen [From FIORICET] Allergy (Intermediate, Verified 10/20/24 15:53) abdominal pain butalbital [From FIORICET] Allergy (Intermediate, Verified 10/20/24 15:53) Abdominal Pain caffeine [From FIORICET] Allergy (Intermediate, Verified 10/20/24 15:53) Abdominal Pain ibuprofen [From MOTRIN] Allergy (Intermediate, Verified 10/20/24 15:53) Abdominal Pain ketorolac [From TORADOL] Allergy (Intermediate, Verified 10/20/24 15:53) Abdominal Pain naproxen [NAPROXEN] Allergy (Intermediate, Verified 10/20/24 15:53) Abdominal Pain nicotine [From NICODERM CQ] Allergy (Intermediate, Verified 10/20/24 15:53) MIGRAINE, rash, headache tramadol Allergy (Intermediate, Verified 10/20/24 15:53) abdominal pain, chest pain sumatriptan [From Imitrex] Adverse Reaction (Severe, Verified 10/20/24 15:53) chest pain HPI HPI asthma: Details: 49-year-old lady, recent 40+ pack-year smoker, now followed for asthma/COPD overlap syndrome and environmental allergies.? Patient has only been using Spiriva and albuterol MDI with suboptimal control of his symptoms. She has never received Advair. Patient now with mild bronchitic exacerbation with cough productive of yellowish sputum. She is also complaining of unrestful sleep and daytime sleepiness. [facility] Medical History (Updated 01/12/25 @ 14:55 by Benton Millan MD) Migraine Seizure Atypical chest pain Declined smoking cessation Hot flashes Chalazion of right eyelid Annual physical exam COPD (chronic obstructive pulmonary disease) Depression Blurry vision Overweight Nausea Muscle spasm GERD (gastroesophageal reflux disease) Surgical History (Updated 06/17/24 @ 10:18 by Asiya Montejo Carlton) History of esophagogastroduodenoscopy (EGD) History of hemorrhoidectomy (06/10/24) History of tubal ligation History of section History of appendectomy History of cholecystectomy Family History Father Diabetes Mother Depression Hypertension Maternal Aunt Uterine cancer Family/Other Mental health disorder Substance use disorder Social History Housing: Apartment Are you a primary outdoor emergency care technician to a significant other at home: No Do you presently have visiting nurse or other home services: No Alcohol intake: former Patient Tobacco Use Status: Current everyday Tobacco user Tobacco use type: Cigarette Cigarettes Per Day: 10 Years Smoked: 33 e-Cigarette/Vaping Use: Never Used Second Hand Smoke Exposure: No Substance Use Type: Marijuana service: No Current occupational status: unemployed Cognitive needs: No Hearing needs: No Vision needs: No Female Reproductive History Menstrual Age of Menarche: 15 Review of Systems Const Reports daytime sleepiness, Denies excessive sweating, Denies fatigue, Denies fever(s), Denies lethargy, Denies malaise, Denies night sweats, Denies snoring and Denies weight loss Eyes Denies blurry vision and Denies itchy eyes ENT Denies nasal congestion, Denies post nasal drip, Denies sinus pain, Denies sinus pressure and Denies other ( Thrush) Card Denies chest pain, Denies pedal edema, Denies dyspnea, Denies orthopnea and Denies paroxysmal nocturnal dyspnea Resp Reports cough, Denies hemoptysis, Denies excessive phlegm production, Denies dyspnea, Denies snoring and Denies wheezing GI Denies abdominal pain and Denies heartburn Musc Denies myalgias, Denies arthralgias and Denies joint swelling Skin/Breast Denies rash Neuro Denies memory loss and Denies seizure-like activity Psych Denies abnormal sleep pattern, Denies anxiety and Denies memory loss Endo Denies excessive sweating, Denies fatigue and Denies heat intolerance Hiram/Lymph Denies easy bruising Aller/Immun Denies itchy eyes, Denies seasonal rhinorrhea and Denies wheezing Physical Exam Vital Signs: Last Vital Signs Pulse 95 01/12/25 14:29 BP 108/60 01/12/25 14:29 Pulse Ox 98 01/12/25 14:29 Oxygen Delivery Method Room Air 01/12/25 14:29 BMI result Body Mass Index 32.3 Const General: no acute distress and alert Nutritional Appearance: not obese Orientation/consciousness: Other orientation findings ( oriented) HEENT Head: Yes atraumatic Eyes General: appearance normal, both eyes and all related structures Sclerae: sclerae normal EOM: EOMs intact bilaterally Neck Neck: Yes supple Lymphatic: no lymphadenopathy noted Resp Effort & Inspection: normal respiratory effort and no use of accessory muscles Auscultation: clear to auscultation bilaterally Cardio Rate: regular rate Rhythm: regular rhythm Heart sounds: no gallops, no murmurs and no rubs Skin General skin exam: other ( warm) Extrem General: No clubbing, No cyanosis and No edema Quality Reporting (2019) Adult ([facility] 138/01/22/69) Smoking risk assessment performed?: Yes Patient Tobacco Use Status: Current everyday Tobacco user Assessment & Plan Assessment & Plan (1) Asthma-COPD overlap syndrome: Code(s): J44.9 - Chronic obstructive pulmonary disease, unspecified Category: Medical Plan: Suboptimal control on Spiriva, will add Breo. Now also with an acute exacerbation, will treat with a course of azithromycin. (2) RACHELLE (obstructive sleep apnea): Code(s): G47.33 - Obstructive sleep apnea (adult) (pediatric) Category: Medical Plan: Unrestful sleep, daytime sleepiness. [place] Sleepiness Scale score of 15. Will obtain home sleep study. Orders: Orders RT home sleep study Today G47.33 - Obstructive sleep apnea (adult) (pediatric) Medications: New azithromycin For 250 mg dose pack: take 500 mg today (day 1), then 250 mg for 4 days (days 2-5) PO 6 tabs 0RF varenicline tartrate (Chantix) 1 mg PO BID 56 tabs 1RF fluticasone furoate-vilanterol 200-25 mcg/dose (Breo Ellipta) 1 inh inhalation DAILY 1 ea 6RF Coding Level of Care Code Est Pt Level 4 (22564) Complex EM visit Add On G2211 Diagnoses Asthma-COPD overlap syndrome J44.9 RACHELLE (obstructive sleep apnea) G47.33
[2025-01-12 14:29] VITALS: BP 108/60; PULSE 95; O2SAT 98; BMI 32.3
--- OUTSIDE RECORDS SUMMARY | 2025-01-12 15:34 | XMS_ITS | Clinical Summary ---
Author Organization [facility] Address [address] [place] [address] [address] [place] [address] Care Team Providers Care Service Vehicle Operator Name Role Phone Unavailable Primary Care Provider Unavailabl e Immunizations Name Administration Dates Next Due Moderna Covid-19 Vaccine 12+ 03/26/2022 Moderna Covid-19 Vaccine 6+ Bivalent 12/18/2022 Social History Tobacco Use Types Packs/Day Years Used Date Smoking Tobacco: Never Assessed Comments Unknown Sex and Gender Information Value Date Recorded Sex Assigned at Female 09/30/2022 10:37 AM EDT Legal Sex Female 10:37 AM EDT Gender Identity Female 09/30/2022 10:37 AM EDT Sexual Orientation Straight 09/30/2022 10 :37 AM EDT Plan of Treatment Health Maintenance Due Date Last Done Comments CT Colonography 1976 Colonoscopy 1976 Colorectal Cancer Screening 1976 Depression Screening 1976 FIT DNA/Cologuard 1976 FIT 1976 FOBT 1976 HIV Screening 1976 SDOH Screening 1976 Sigmoidoscopy 1976 Alcohol/Substance Use Screening 1988 Tobacco Screening 1988 Family Planning (PISQ) 1991 Hepatitis C Screening 1994 Hepatitis B Vaccines (1 of 3 - 19+ 3-dose series) 1995 Pap Smear 1997 Cervical Cancer Screening 2006 HPV/Cotest 2006 DTaP/Tdap/Td Vaccines (1 - Tdap) 12/25/2011 12/24/2011 Mammogram 2016 COVID-19 Vaccine ( season) 2024 12/18/2022, 03/26/2022, 05/01/2021, Additional history exists Influenza Vaccine (#1) 2024 , 07/30/2016, 11/29/2013 Zoster Vaccines (1 of 2) 2026 RSV Patients and Patients Aged 60 years or older (1 - 1-dose 75+ series) 2051 Pneumococcal Vaccine: Pediatrics (0 to 5 Years) and At-Risk Patients (6 to 49) Years) Aged Out 08/16/2012 No longer eligible based on patient's age to complete this topic HIB Vaccines Aged Out No longer eligi ble based on patient's age to complete this topic HPV Vaccines Aged Out No longer eligi ble based on patient's age to complete this topic Hepatitis A Vaccines Aged Out No long er eligible based on patient's age to complete this topic IPV Vaccines Aged Out No longer eligi ble based on patient's age to complete this topic Meningococcal Vaccine Aged Out No harvey fran eligible based on patient's age to complete this topic RSV under 20 months Aged Out No longe r eligible based on patient's age to complete this topic Rotavirus Vaccines Aged Out No longer eligible based on patient's age to complete this topic Insurance [facility] PL[facility]
== END 2025-01-12 14:51 | disposition home or self-care (01) ==
PROVIDERS: PCP Internal Medicine; Visit Provider Internal Medicine Pulmonary Disease
DX: J44.9 Chronic obstructive pulmonary disease, unspecified (principal); G47.33 Obstructive sleep apnea (adult) (pediatric)
CPT/HCPCS: 99214; G2211

== ENCOUNTER → 2025-01-12 14:11 | Outpatient (BNVA) | payer OTHER, SELFPAY | PROVIDERS: PCP Internal Medicine; Visit Provider Internal Medicine Pulmonary Disease | DX: J44.9 Chronic obstructive pulmonary disease, unspecified (principal); G47.33 Obstructive sleep apnea (adult) (pediatric) | CPT/HCPCS: 99212 ==

== ENCOUNTER → 2025-03-14 13:32 | Outpatient (REF) | payer OTHER, SELFPAY ==
--- OUTSIDE RECORDS SUMMARY | 2025-03-14 15:34 | XMS_ITS | Clinical Summary ---
Author Organization [employer] [facility] Address [address] [place] [address] [address] [place] [address] Care Team Providers Care Vice President Quality Assurance Name Role Phone Unavailable Primary Care Provider [...] patient's age to complete this topic Insurance [facility] PLAN
--- OUTSIDE RECORDS SUMMARY | 2025-03-14 15:34 | XMS_ITS | Clinical Summary ---
Author Organization [facility] Address [address] [place] [address] Care Team Providers Care Farm Management Professor Name Role Phone Ivonne Lord RHYS Primary Care Provider [phone] Source Comments PLEASE NOTE, if this patient is a minor, it may be UNLAWFUL to discuss sensitive information that is contained in these records (such as FAMILY PLANNING, MENTAL HEALTH or SUBSTANCE ABUSE) with the minor patient's parent or other person without the patient's specific authorization.[facility] Allergies Active Allergy Reactions Criticality Noted Date Comments Ciprofloxacin Anaphylaxis 03/14/2016 Ibuprofen Other (See Comments) 03/14/2016 Gastric ulcers/ esophgeal tears Morphine SOB 03/14/2016 Ondansetron Hcl (Pf) Rash 03/14/2016 Medications omeprazole (PRILOSEC) [address] Sow ns:Gastroesophag eal reflux disease with esophagitis Take 1 Cap by mouth every morning before breakfast Do not crush or chew. 30 Cap 1 7 Active metoclopramide HCl (REGLAN) 5 mg tabletIndication s:Gastroesophage al reflux disease with esophagitis,Epig astric pain Take 1 Tab by mouth 3 (three) times daily as needed for other reason (nausea, vomiting) 30 Tab 0 7 Active acetaminophen (TYLENOL) 500 mg tablet Take 1 Tab by mouth every 6 (six) hours as needed for pain 30 Tab 2 7 Active Active Problems Problem Noted Date Diagnosed Date Smoking 03/14/2016 Overview (02/12/2017): [facility] 2/317- : No acute pulmonary disease. Depression with anxiety 03/14/2016 Overview (03/14/2016): Used to follow at [facility] in the past. Now establishing there again- was seen as walkin. Seizure disorder ([facility]) 03/14/2016 Overview (05/01/2016): Used to follow with neurologist in [place]. On Lamotrigine 150mg BID. Last seizure ~01/2016 per pt. Per [facility] records, she had unremarkable LTVM and MRI Brain in 2012. Followed Neurologist Dr. Carter who prescribed Lamotrigine. >> Now following Dr. Rice at [facility] since 04/26/16. Prescribed Lamotrigine. Gastroesophageal reflux disease with esophagitis 03/14/2016 Migraine 03/14/2016 Overview (04/07/2016): Used to follow at [facility] Neuro, was on Imitrex in 2013 Bilateral low back pain without sciatica 016 Overview (01/17/2017): Says that she was treated with Baclofen in the past [facility] 01/03/17- Nonobstructive bowel gas pattern. The patient is seen to have undergone previous cholecystectomy. Immunizations Immunization Administration Dates Next Due Moderna COVID-19 Vaccine, re d cap blue label, 12+ Primary Series 05/01/2021,04/02/2021 PNEUMOCOCCAL POLYSACCHARIDE PPV23 08/16/2012 Td(adult),2 Lf tetanus toxoid,preservative free 12/24/2011 Social History Tobacco Use Types Packs/Day Years Used Date Smoking Tobacco: Every Day Tobacco Cessation:Counseling Given: Yes Alcohol Use Standard Drinks/Week Comments No 0 (1 standard drink = 0.6 oz pur e alcohol) Social Connections Answer Date Recorded Social Connections and Isolation 0 04/02/2021 Financial Resource Strain Answer Date R ecorded Financial Resource Strain 0 2020 Stress Answer Date Recorded Stress 0 04/02/2021 Physical Activity Answer Date Recorded Physical Activity 0 04/02/2021 Food Insecurity Answer Date Recorded Food 0 04/02/2021 Transportation Needs Answer Date Record ed Transportation 0 04/02/2021 Housing Stability Answer Date Recorded Housing 0 04/02/2021 Safety and Environment Answer Date Deshaun rded Safety 0 04/02/2021 Utilities Answer Date Recorded Utilities 0 04/02/2021 Employment Answer Date Recorded Employment 0 04/02/2021 Comments No Sex and Gender Information Value Date Recorded Sex Assigned at Not on file Legal Sex Female 12:33 PM PST Gender Identity Not on file Sexual Orientation Not on file Last Filed Vital Signs Vital Sign Reading Time Taken Comments Blood Pressure 92/74 01/31/2017 10:56 AM EST Pulse 68 01/31/2017 10:56 AM EST Temperature 36.5 ??C (97.7 ??F) 01/31/2017 10:[address] Respiratory Rate 20 01/31/2017 10:56 AM EST Oxygen Saturation - - Inhaled Oxygen Concentration - - Weight 51.7 kg (114 lb) 01/31/2017 10:56 AM EST Height 154.9 cm (5' 1 ) 01/31/2017 10:56 AM EST Body Mass Index 21.54 01/31/2017 10:56 AM EST Plan of Treatment Health Maintenance Due Date Last Done Comments Anxiety Screening 1976 Diabetes Screening 1976 HPV Screening 1976 Hepatitis C Screening 1976 Lipid Screening 1976 Pap + HPV 1976 Tobacco Screening 1976 HIV Screening 1991 Relationship Safety Screening/Counseling 1991 Imm-Hepatitis B (1 of 3 - 19 + 3-dose series) 1995 Cervical Cancer Screening 1997 Pap Smear 1997 Imm-DTaP/Tdap/Td (1 - Tdap) 12/25/2011 12/24/2011 Breast Cancer Screening (Mammogram) 2016 Tobacco Cessation Counseling (#1) 03/14/2017 Hypertension Screening (#1) 01/31/2018 CT Colonography 2021 Colonoscopy 2021 Colorectal Cancer Screening 2021 FIT/gFOBT 2021 Fecal DNA 2021 Flexible Sigmoidoscopy 2021 Com-WVLEL-98 ( season) 08/01/202405/01/ 021, 04/02/2021 Imm-Influenza (#1) 2024 01/02/2021, 1 , 01/29/2018, Additional history exists Alcohol and Drug Screen 12/01/2024 Depression Annual Screen 12/01/2024 Cervical Ablation/Cold-Knife Conization Discontinued Cervical Cryotherapy Discontinued Colposcopy Discontinued Endometrial Biopsy Discontinued Excision/Leep Discontinued HPV Genotyping Discontinued Vaginal Pap Discontinued Vulvoscopy Discontinued [facility] [employer] [facility] Member Subscriber Plan / Payer (Ef fective 2018-Present) Name:Xin Alvarez Relation to Subscriber:Self Name:Xin Alvarez Payer ID:[id number] Group ID:Not on file Type:Medicaid Address: [facility] [address] [place] [address] Care Teams Farm Management Professor Relationship Specialty Start Date End Date Ivonne Lord FNP [address] [place] [address] PCP - General 01/26/19
== END ==
LOC: HO.SL 13:32
PROVIDERS: PCP Internal Medicine; Visit Provider Internal Medicine Pulmonary Disease
DX: G47.33 Obstructive sleep apnea (adult) (pediatric) (principal)
CPT/HCPCS: 95806

== ENCOUNTER → 2025-03-15 13:40 | Outpatient (BNV) | payer OTHER, SELFPAY | PROVIDERS: PCP Internal Medicine; Visit Provider Internal Medicine | DX: G47.33 Obstructive sleep apnea (adult) (pediatric) (principal) | CPT/HCPCS: 95806 ==

== ENCOUNTER 2025-09-29 13:45 | Outpatient (AMB) | payer MEDICAID, SELFPAY ==
--- NOTE | 2025-09-29 13:47 | MHC.OFFVIS ---
Vital Signs 09/29/25 13:49 Height 4 ft 11 in Weight 165 lb BMI 33.3 BP 122/77 Blood Pressure Location Rt brachial Position Sitting Pulse 109 H Pulse Source Pulse Oximeter Pulse Oximetry (%) 98 Oxygen Delivery Method Room Air Intake Visit Reasons: Obstructive sleep apnea Dupligraph Operator Required: Yes Dupligraph Operator Name: Carol Dubois Ruby Information Interpreted: non-clinical & clinical Allergies ciprofloxacin (From Cipro) Allergy (Severe, Verified 09/29/25 13:53) throat swelling, rash morphine (MORPHINE) Allergy (Severe, Verified 09/29/25 13:53) anaphylaxis ondansetron (From ZOFRAN ( HYDROCHLORIDE)) Allergy (Severe, Verified 09/29/25 13:53) Hives acetaminophen (From FIORICET) Allergy (Intermediate, Verified 09/29/25 13:53) abdominal pain butalbital (From FIORICET) Allergy (Intermediate, Verified 09/29/25 13:53) Abdominal Pain caffeine (From FIORICET) Allergy (Intermediate, Verified 09/29/25 13:53) Abdominal Pain ibuprofen (From MOTRIN) Allergy (Intermediate, Verified 09/29/25 13:53) Abdominal Pain ketorolac (From TORADOL) Allergy (Intermediate, Verified 09/29/25 13:53) Abdominal Pain naproxen (NAPROXEN) Allergy (Intermediate, Verified 09/29/25 13:53) Abdominal Pain nicotine (From NICODERM CQ) Allergy (Intermediate, Verified 09/29/25 13:53) MIGRAINE, rash, headache tramadol Allergy (Intermediate, Verified 09/29/25 13:53) abdominal pain, chest pain sumatriptan (From Imitrex) Adverse Reaction (Severe, Verified 09/29/25 13:53) chest pain HPI HPI Obstructive sleep apnea: Details: 50-year-old lady, recent 40+ pack-year smoker, now followed for asthma/COPD overlap syndrome, RACHELLE, and environmental allergies.? She continues on Breo, Spiriva, duo nebs, and albuterol MDI with good baseline control of her symptoms. Over the last week she has been having a bronchitic exacerbation symptomatic with productive cough. She also completed her sleep study that shows underlying mild obstructive sleep apnea. [facility] Medical History (Updated 01/12/25 @ 14:55 by Benton Millan MD) Migraine Seizure Atypical chest pain Declined smoking cessation Hot flashes Chalazion of right eyelid Annual physical exam COPD (chronic obstructive pulmonary disease) Depression Blurry vision Overweight Nausea Muscle spasm GERD (gastroesophageal reflux disease) Surgical History (Updated 06/17/24 @ 10:18 by Asiya Montejo Carlton) History of esophagogastroduodenoscopy (EGD) History of hemorrhoidectomy (06/10/24) History of tubal ligation History of section History of appendectomy History of cholecystectomy Family History Father Diabetes Mother Depression Hypertension Maternal Aunt Uterine cancer Family/Other Mental health disorder Substance use disorder Social History Housing: Apartment Are you a primary residential care officer to a significant other at home: No Do you presently have visiting nurse or other home services: No Alcohol intake: former Patient Tobacco Use Status: Current everyday Tobacco user Tobacco use type: Cigarette Cigarettes Per Day: 10 Years Smoked: 33 e-Cigarette/Vaping Use: Never Used Second Hand Smoke Exposure: No Substance Use Type: Marijuana service: No Current occupational status: unemployed Cognitive needs: No Hearing needs: No Vision needs: No Female Reproductive History Menstrual Age of Menarche: 15 Review of Systems Const Denies daytime sleepiness, Denies excessive sweating, Denies fatigue, Denies fever(s), Denies lethargy, Denies malaise, Denies night sweats, Denies snoring and Denies weight loss Eyes Denies blurry vision and Denies itchy eyes ENT Denies nasal congestion, Denies post nasal drip, Denies sinus pain, Denies sinus pressure and Denies other ( Thrush) Card Denies chest pain, Denies pedal edema, Denies dyspnea, Denies orthopnea and Denies paroxysmal nocturnal dyspnea Resp Denies cough, Denies hemoptysis, Denies excessive phlegm production, Denies dyspnea, Denies snoring and Denies wheezing GI Denies abdominal pain and Denies heartburn Musc Denies myalgias, Denies arthralgias and Denies joint swelling Skin/Breast Denies rash Neuro Denies memory loss and Denies seizure-like activity Psych Denies abnormal sleep pattern, Denies anxiety and Denies memory loss Endo Denies excessive sweating, Denies fatigue and Denies heat intolerance Hiram/Lymph Denies easy bruising Aller/Immun Denies itchy eyes, Denies seasonal rhinorrhea and Denies wheezing Physical Exam Vital Signs: Last Vital Signs Pulse 109 H 09/29/25 13:49 BP 122/77 09/29/25 13:49 Pulse Ox 98 09/29/25 13:49 Oxygen Delivery Method Room Air 09/29/25 13:49 BMI result Body Mass Index 33.3 Const General: no acute distress and alert Nutritional Appearance: not obese Orientation/consciousness: Other orientation findings ( oriented) HEENT Head: Yes atraumatic Eyes General: appearance normal, both eyes and all related structures Sclerae: sclerae normal EOM: EOMs intact bilaterally Neck Neck: Yes supple Lymphatic: no lymphadenopathy noted Resp Effort & Inspection: normal respiratory effort and no use of accessory muscles Auscultation: other (Poor bilateral air movement) Cardio Rate: regular rate Rhythm: regular rhythm Heart sounds: no gallops, no murmurs and no rubs Skin General skin exam: other ( warm) Extrem General: No clubbing, No cyanosis and No edema Assessment & Plan Assessment & Plan (1) Asthma-COPD overlap syndrome: Code(s): J44.9 - Chronic obstructive pulmonary disease, unspecified Category: Medical Plan: Baseline controlled on Breo, Spiriva, duo nebs, and albuterol MDI. Continue current regimen. Will treat bronchitic exacerbation with a course of prednisone and azithromycin. Codeine for symptomatic relief of cough. (2) RACHELLE (obstructive sleep apnea): Code(s): G47.33 - Obstructive sleep apnea (adult) (pediatric) Category: Medical Plan: Results of sleep study reviewed underlying mild obstructive sleep apnea. Will start on APAP of 6-16 cm of water. Medications: New azithromycin For 250 mg dose pack: take 500 mg today (day 1), then 250 mg for 4 days (days 2-5) PO 6 tabs 0RF prednisone 40 mg (2 x 20 mg) PO DAILY 10 tabs 0RF codeine-guaifenesin 10-100 mg/5 mL 10 mL PO Q4-6H PRN 473 mL 0RF cough Refilled ipratropium-albuterol 0.5 mg-3 mg(2.5 mg base)/3 mL 3 mL PO Q4-6H PRN 180 mL 6RF for wheezing Coding Level of Care Code Est Pt Level 4 (54677) Diagnoses Asthma-COPD overlap syndrome J44.9 RACHELLE (obstructive sleep apnea) G47.33
[2025-09-29 13:49] VITALS: BP 122/77; PULSE 109; O2SAT 98; BMI 33.3
--- OUTSIDE RECORDS SUMMARY | 2025-09-29 16:47 | XMS_ITS | Clinical Summary ---
Author Organization [employer] Address [address] [place] [address] [address] [place] [address] Care Team Providers Care Supreme Court Justice Name Role Phone Unavailable Primary Care Provider Unavailabl e Immunizations Immunization Administration Dates Next Due Moderna Covid-19 Vaccine [...] Screening 1976 SDOH Screening 1976 Sigmoidoscopy 1976 Disability Screening 1976 Alcohol/Substance Use Screening 1988 Tobacco Screening 1988 Family Planning (PISQ) 1991 Hepatitis C Screening 1994 Hepatitis B Vaccines (1 of 3 - 19+ 3-dose series) 1995 Pap Smear 1997 Cervical Cancer Screening 2006 HPV/Cotest 2006 DTaP/Tdap/Td Vaccines (1 - Tdap) 12/25/2011 12/24/2011 Mammogram 2016 COVID-19 Vaccine ( season) 2025 12/18/2022, 03/26/2022, 05/01/2021, Additional history exists Influenza Vaccine (#1) 2025 , 07/30/2016, 11/29/2013 Zoster Vaccines (1 of 2) 2026 RSV Patients and Patients Aged 60 years or older (1 - 1-dose 75+ series) 2051 Pneumococcal Vaccine: Pediatrics (0 to 5 Years) and At-Risk Patients (6 to 49) Years Aged Out 08/16/2012 No longer eligible based [...] patient's age to complete this topic Meningococcal B Vaccine Aged Out No l onger eligible based on patient's age to complete this topic Meningococcal Vaccine Aged Out No harvey fran eligible based on patient's age to complete this topic RSV under 20 months Aged Out No longe r eligible based on patient's age to complete this topic Rotavirus Vaccines Aged Out No longer eligible based on patient's age to complete this topic Insurance [facility]
== END 2025-09-29 14:04 | disposition home or self-care (01) ==
LOC: HO.HPS 13:46
PROVIDERS: PCP Internal Medicine; Visit Provider Internal Medicine Pulmonary Disease
DX: J44.9 Chronic obstructive pulmonary disease, unspecified (principal); G47.33 Obstructive sleep apnea (adult) (pediatric)
CPT/HCPCS: 99214

== ENCOUNTER → 2025-09-29 13:45 | Outpatient (BNVA) | payer MEDICAID, SELFPAY | PROVIDERS: PCP Internal Medicine; Visit Provider Internal Medicine Pulmonary Disease | DX: G47.33 Obstructive sleep apnea (adult) (pediatric) (principal); J44.89 Other specified chronic obstructive pulmonary disease; F17.210 Nicotine dependence, cigarettes, uncomplicated; Z99.89 Dependence on other enabling machines and devices | CPT/HCPCS: 99212 ==

== ENCOUNTER 2025-11-03 08:13 | Outpatient (AMB) | payer MEDICAID, SELFPAY ==
--- NOTE | 2025-11-03 08:16 | A.OFFPC_ITS ---
Vital Signs 11/03/25 08:20 Height 4 ft 11 in Weight 168 lb 2 oz BMI 34.0 BP 108/80 Blood Pressure Location Lt brachial Position Sitting Pulse 100 Pulse Source Pulse Oximeter Temp 98.6 F Temp Source Oral Pulse Oximetry (%) 98 Oxygen Delivery Method Room Air Intake Visit Reasons: Care f/u RESCHED. from 11/01 Sustainable Communities Designer Required: No Accompanied by: Child Allergies ciprofloxacin (From Cipro) Allergy (Severe, Verified 11/03/25 08:28) throat swelling, rash morphine (MORPHINE) Allergy (Severe, Verified 11/03/25 08:28) anaphylaxis ondansetron (From ZOFRAN ( HYDROCHLORIDE)) Allergy (Severe, Verified 11/03/25 08:28) Hives acetaminophen (From FIORICET) Allergy (Intermediate, Verified 11/03/25 08:28) abdominal pain butalbital (From FIORICET) Allergy (Intermediate, Verified 11/03/25 08:28) Abdominal Pain caffeine (From FIORICET) Allergy (Intermediate, Verified 11/03/25 08:28) Abdominal Pain ibuprofen (From MOTRIN) Allergy (Intermediate, Verified 11/03/25 08:28) Abdominal Pain ketorolac (From TORADOL) Allergy (Intermediate, Verified 11/03/25 08:28) Abdominal Pain naproxen (NAPROXEN) Allergy (Intermediate, Verified 11/03/25 08:28) Abdominal Pain nicotine (From NICODERM CQ) Allergy (Intermediate, Verified 11/03/25 08:28) MIGRAINE, rash, headache tramadol Allergy (Intermediate, Verified 11/03/25 08:28) abdominal pain, chest pain sumatriptan (From Imitrex) Adverse Reaction (Severe, Verified 11/03/25 08:28) chest pain Medication List - Last Reconciled 11/03/25 by Dayana Morris MD albuterol sulfate 90 mcg/actuation (Ventolin HFA) 2 puffs inhalation Q4-6H PRN azithromycin For 250 mg dose pack: take 500 mg today (day 1), then 250 mg for 4 days (days 2-5) PO clonidine HCl 0.2 mg PO TID codeine-guaifenesin 10-100 mg/5 mL 10 mL PO Q4-6H PRN cyclobenzaprine 10 mg PO Q8H PRN 90 days dicyclomine 20 mg PO TID PRN fluticasone furoate-vilanterol 200-25 mcg/dose (Breo Ellipta) 1 ea PO DAILY hydrocodone-acetaminophen 5-300 mg 1 tab PO Q4-6H PRN hydrocortisone 2.5% [address] BID-QID PRN ipratropium-albuterol 0.5 mg-3 mg(2.5 mg base)/3 mL 3 mL PO Q4-6H PRN mirtazapine 45 mg PO BEDTIME pantoprazole 40 mg PO DAILY 90 days prazosin 1 mg PO BEDTIME prednisone 40 mg (2 x 20 mg) PO DAILY promethazine [address] Q6H PRN promethazine 25 mg PO BID PRN quetiapine (Seroquel) 25 mg PO BEDTIME tiotropium bromide 2.5 mcg/actuation (Spiriva Respimat) 2 puffs PO QAM varenicline tartrate 1 mg PO BID Tobacco use date assessed: 11/03/25 Dental Screening Dental Screen Date: 11/03/25 Did you have a dental visit in the last 12 months?: Yes HPI HPI Comments History of Present Illness Details The patient is a 50-year-old female presenting for a follow-up of her chronic conditions, including asthma-COPD overlap and sleep apnea, as well as new health concerns. Her respiratory conditions are managed by a energy consultant. Regarding her sleep apnea, a prior sleep study was inconclusive due to a damaged machine, but she recently received a CPAP machine and is preparing to start using it. The patient reports a history of smoking and has been prescribed Chantix by her energy consultant, which has helped her reduce the number of cigarettes she smokes without experiencing side effects like nightmares. She was ill about three weeks ago and was prescribed two courses of antibiotics and prednisone. She has been experiencing pain in both shoulders, which she attributes to past falls during what she describes as apilasticos attacks, with the pain having worsened recently; the left shoulder is more symptomatic. She also reports intermittent pelvic pain for the past six months. Her gastrointestinal history includes dyspepsia, for which she takes dicyclomine, and she is also on pantoprazole for acid reflux. She has undergone two hemorrhoid surgeries in the past and has had no rectal bleeding since the second procedure. She has no family history of colon cancer. Past medical history also includes depression with anxiety, overseen by a psychiatrist, and hypertriglyceridemia noted on past lab work, which was not severe enough to warrant medication. She is due for a mammogram and colon cancer screening. She has multiple drug allergies including to ciprofloxacin, morphine, ondansetron, Fioricet, Motrin, ketorolac, naproxen, Nicoderm patch, tramadol, and Imitrex. [facility] Medical History (Updated 11/03/25 @ 08:51 by Dayana Morris MD) Migraine Seizure Atypical chest pain Declined smoking cessation Hot flashes Chalazion of right eyelid Annual physical exam COPD (chronic obstructive pulmonary disease) Depression Blurry vision Overweight Nausea Muscle spasm GERD (gastroesophageal reflux disease) Surgical History History of esophagogastroduodenoscopy (EGD) History of hemorrhoidectomy (06/10/24) History of tubal ligation History of section History of appendectomy History of cholecystectomy Family History Father Diabetes Mother Depression Hypertension Maternal Aunt Uterine cancer Family/Other Mental health disorder Substance use disorder Social History Housing: Apartment Are you a primary overnight caregiver to a significant other at home: No Do you presently have visiting nurse or other home services: No Alcohol intake: former Patient Tobacco Use Status: Current everyday Tobacco user Tobacco use type: Cigarette Cigarettes Per Day: 10 Years Smoked: 33 e-Cigarette/Vaping Use: Never Used Second Hand Smoke Exposure: No Substance Use Type: Marijuana service: No Current occupational status: unemployed Cognitive needs: No Hearing needs: No Vision needs: No Female Reproductive History Menstrual Age of Menarche: 15 Questionnaire PHQ-9 Over the last 2 weeks, how often have you been bothered by any of the following problems? 1. Little interest or pleasure in doing things: several days 2. Feeling down, depressed, or hopeless: several days 3. Trouble falling or staying asleep, or sleeping too much: several days 4. Feeling tired or having little energy: several days 5. Poor appetite or overeating: not at all 6. Feeling bad about yourself - or that you are a failure or have let yourself or your family down: several days 7. Trouble concentrating on things, such as reading the newspaper or watching television: not at all 8. Moving or speaking so slowly that other people could have noticed. Or the opposite - being so fidgety or restless that you have been moving around a lot more than usual: not at all 9. Thoughts that you would be better off or of hurting yourself in some way: not at all Total score: 5 Depression Screening Interpretation: Positive Depression Screening Follow-up: Existing condition, In treatment, Community Mental Health Worker F/U and Follow- up Visit Requested Depression Screening Done: Yes 06275 - PHQ-9 Billing: Yes Source: Developed by Drs. Wilfred Pineda, Sophy Van, Honorio Lennon and colleagues, with an educational fidencio from [employer]. Thrive Questionnaire Date Thrive assessed: 11/03/25 I am a: Patient What is your living situation today?: I have a steady place to live Within the past 12 months, did the food you bought not last and you didn't have the money to get more?: Often true Within the past 12 months, did you worry whether your food would run out before you got money to buy more?: Sometimes True Do you have trouble paying for medicines?: No Do you have trouble getting transportation to medical appointments?: No Do you have trouble paying your heating and electricity bill?: Yes Do you have trouble taking care of your child, family member or friend?: No Do you have trouble with day-to-day activities such as bathing, preparing meals, shopping, managing finances, etc.?: No Are you currently unemployed and looking for a job?: I choose not to answer this question Are you interested in more education?: No Please select the resources that you would like help with: None Currently or been in a relationship where the following occur: No concerns reported THRIVE Score: 3 AUDIT C Alcohol Use Questionnaire (AUDIT-C) 1. How often do you have a drink containing alcohol?: Never Total Score: 0 Score Reviewed/Action Taken: No RAINER-7 AMB Questionnaire RAINER-7 Date RAINER - 7 assessed: 12/18/23 Source: Developed by Sophy Zambrano Kurt Kroenke a nd colleagues, with an educational fidencio from [employer]. Review of Systems Const All systems reviewed & are unremarkable except as noted in HPI and below Card Denies chest pain at rest, Denies chest pain with activity, Denies edema, Denies irregular heart rhythm, Denies claudication, Denies dyspnea, Denies dyspnea on exertion, Denies orthopnea, Denies paroxysmal nocturnal dyspnea and Denies slow heart rate Resp Denies cough, Denies dyspnea and Denies dyspnea on exertion Physical exam (Primary Care) Vital Signs: Last Vital Signs Temp 98.6 F 11/03/25 08:20 Pulse 100 11/03/25 08:20 BP 108/80 11/03/25 08:20 Pulse Ox 98 11/03/25 08:20 Oxygen Delivery Method Room Air 11/03/25 08:20 BMI result Body Mass Index 34.0 BMI Assessment/Plan discussion: High BMI High, discussed plan: lifestyle, weight reduction, dietary and physical activity Tobacco/Smoking Status: Tobacco use Status Tobacco use date assessed 11/03/25 11/03/25 08:17 Patient Tobacco Use Status Current everyday Tobacco 11/03/25 08:17 Tobacco use type Cigarette 11/03/25 08:17 e-Cigarette/Vaping Use Never Used 11/03/25 08:17 Are you ready to quit: No Tobacco cessation counseling provided: Yes Items discussed: Nicotine replacement Relapse Prevention: discussed extending NRT Number of minutes spent counselin CPT code: Less than 3 minutes PHQ-9: PHQ-9 Score PHQ-9: Total score 5 11/03/25 08:17 Depression Screening Interpretation: Positive Depression Screening Follow-up: Existing condition, In treatment, Community Mental Health Worker F/U and Follow- up Visit Requested Thrive Assessment: Date of Thrive Assessment Date Thrive assessed 11/03/25 11/03/25 08:17 Currently or been in a relationship where the following occur: No concerns reported Resp Effort & Inspection: normal respiratory effort Auscultation: clear to auscultation bilaterally Cardio Jugular venous distension: no JVD Rate: regular rate Rhythm: regular rhythm Heart sounds: S1 normal heart sound present and S2 normal heart sound present Extrem General: Yes full ROM Coding Level of Care Code Complex visit Add On G2211 Diagnoses Mild major depression F32.0 RAINER (generalized anxiety disorder) F41.1 Asthma-COPD overlap syndrome J44.9 RACHELLE (obstructive sleep apnea) G47.33 Chronic right shoulder pain M25.511; G89.29 Chronicity: chronic Chronic left shoulder pain M25.512; G89.29 Chronicity: chronic Additional Codes PHQ-9 - 37407 - PHQ-9 Billing: Yes ([id number]) Time Spent (min) 24 Assessment & Plan Assessment & Plan (1) Mild major depression: Code(s): F32.0 - Major depressive disorder, single episode, mild Category: Medical (2) RAINER (generalized anxiety disorder): Code(s): F41.1 - Generalized anxiety disorder Category: Medical (3) Asthma-COPD overlap syndrome: Code(s): J44.9 - Chronic obstructive pulmonary disease, unspecified Category: Medical (4) RACHELLE (obstructive sleep apnea): Code(s): G47.33 - Obstructive sleep apnea (adult) (pediatric) Category: Medical (5) Right shoulder pain: Code(s): M25.511 - Pain in right shoulder Category: Medical Qualifiers: Chronicity: chronic Qualified Code(s): M25.511 - Pain in right shoulder; G89.29 - Other chronic pain (6) Left shoulder pain: Code(s): M25.512 - Pain in left shoulder Category: Medical Qualifiers: Chronicity: chronic Qualified Code(s): M25.512 - Pain in left shoulder; G89.29 - Other chronic pain Plan Plan 1. Bilateral Shoulder Pain To evaluate the patient's bilateral shoulder pain, which is worse on the left, X-rays of both shoulders will be ordered. A referral to physical therapy will also be placed to help with her arm discomfort. 2. Health Maintenance For preventative care, the patient is due for screenings. An order for a mammogram will be placed. A Cologuard test will be ordered for colon cancer screening, which will be sent to her home. If the Cologuard test is positive, a colonoscopy will be necessary. Fasting labs will be ordered to re-check her triglyceride levels and for general health monitoring. 3. Tobacco Use Disorder The patient will continue with her current regimen of Chantix for smoking cessation, which is managed by her energy consultant. 4. Nausea A prescription refill for promethazine will be sent to the pharmacy for management of nausea. 5. Obstructive Sleep Apnea The patient will begin using her new CPAP machine for sleep apnea. She will continue to follow up with her energy consultant for management of this condition. 6. Asthma-COPD overlap syndrome Follow-up with pulmonology. Continue Breo. Use rescue inhaler as needed. 7. Depression with anxiety Follow-up with psychiatry. Continue mirtazapine and Seroquel. Orders: Orders Influenza [id number] Immunization Today Z23 - Encounter for immunization XR shoulder LT min 2V Today M25.512 - Pain in left shoulder XR shoulder RT min 2V Today M25.511 - Pain in right shoulder PT Evaluation and Treatment Today M25.512 - Pain in left shoulder Lipid Panel Today E78.5 - Hyperlipidemia, unspecified Complete Blood Count Auto Diff Today R53.82 - Chronic fatigue, unspecified Thyroid Stimulating Hormone Today R53.82 - Chronic fatigue, unspecified MM tomosynthesis screening BI Today Z12.31 - Encounter for screening mammogram for malignant neoplasm of breast Comprehensive [place]. Panel Fast Today R53.82 - Chronic fatigue, unspecified Vitamin B12 and Folate Today E53.8 - Deficiency of other specified B group vitamins, R53.82 - Chronic fatigue, unspecified Vitamin D 25-OH Total Today E55.9 - Vitamin D deficiency, unspecified, R53.82 - Chronic fatigue, unspecified Referrals Cologuard Test Z12.11 - Encounter for screening for malignant neoplasm of colon, Z12.12 - Encounter for screening for malignant neoplasm of rectum Medications: New Fluarix [id number] (PF) (flu vac ts 2024-(6mos up)-PF) 0.5 mL IM ONCE 0.5 mL 0RF NS Z23 - Encounter for immunization Refilled promethazine 25 mg PO BID PRN 60 tabs 3RF for nausea/vomiting Discontinued hydrocodone-acetaminophen 5-300 mg Partial Fill upon patient request. Discontinued Reason: Patient Completed Course 1 tab PO Q4-6H PRN 30 tabs 0RF pain (scale score 7-10)
[2025-11-03 08:20] VITALS: BP 108/80; PULSE 100; TEMP 37; O2SAT 98; BMI 34.0
== END 2025-11-03 08:47 | disposition home or self-care (01) ==
LOC: HO.HMCH 08:14
PROVIDERS: PCP Internal Medicine; Visit Provider Internal Medicine
DX: F32.0 Major depressive disorder, single episode, mild (principal); F41.1 Generalized anxiety disorder; J44.9 Chronic obstructive pulmonary disease, unspecified; G47.33 Obstructive sleep apnea (adult) (pediatric); M25.511 Pain in right shoulder; G89.29 Other chronic pain; M25.512 Pain in left shoulder

== ENCOUNTER → 2025-11-03 08:13 | Outpatient (BNVA) | payer MEDICAID, SELFPAY | PROVIDERS: PCP Internal Medicine; Visit Provider Internal Medicine | DX: F32.0 Major depressive disorder, single episode, mild (principal); F41.1 Generalized anxiety disorder; J44.9 Chronic obstructive pulmonary disease, unspecified; G47.33 Obstructive sleep apnea (adult) (pediatric); M25.512 Pain in left shoulder; M25.511 Pain in right shoulder; G89.29 Other chronic pain | CPT/HCPCS: 96127; 99212 ==